=== PATIENT | male | born 1930 | race Caucasian/White ===

== ENCOUNTER 2018-04-03 15:56 | Inpatient (IN) | payer MEDICARE, BC ==
--- NOTE | 2018-04-03 16:44 | ED ---
Altered Mental Status - HPI Summary HPI Summary: 87 year old M presenting to [facility] accompanied by grandson Shakeel and later, son, with a chief complaint of altered mental status for three days. Symptoms aggravated by nothing. Symptoms alleviated by nothing. Patient reports visual hallucinations. Patient states that he sees people who are not there but while he sees them, he knows that they are not really there. He has never had these visual hallucinations before. Per triage note he has also wandered off, and driven the car a few miles. He additionally reports left-sided chest pain that waxes and wanes. He reports urgency and incontinence. Son reports shuffling gait. Patient denies headache, dizziness, fever, shortness of breath, cough. Patient denies abdominal pain, nausea, vomiting. He denies dysuria and back pain. He denies BLE pain and BLE edema. Son denies facial droop or episodes of trouble with his speech. Per grandson, patient was given melatonin 1 mg last night, fell asleep quickly, but woke up two hours after. Patient had urine sample taken at [facility] a few days ago that was reportedly negative. Patient is a . Patient was seen by urologist a couple of years ago at [facility] in [place] per grandson. 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 Vital signs while in room: HR 129/89. Home Medications Medication Instructions Recorded Confirmed Type Aspirin 325 mg PO DAILY 04/03/18 04/03/18 History - History Of Current Complaint Chief Complaint: EDAltMentalStatus Stated Complaint: AMS/WONDERS OFF Time Seen by Provider: 04/03/18 16:32 Hx Obtained From: Patient, Family/Cdl Team Truck Driver - grandtye Beckford and son and daughter Last Known Well Date: 3 days ago Onset/Duration: Still Present Timing: Constant, Lasting Days - 3 Severity Initially: Mild Severity Currently: Moderate Character: Confusion Aggravating Factor(s): Nothing Alleviating Factor(s): Nothing - Allergies/Home Medications Allergies/Adverse Reactions: Allergies Allergy/AdvReac Type Severity Reaction Status Date / Time No Known Allergies Allergy Verified 04/03/18 16:35 Home Medications: Home Medications Aspirin 325 mg PO DAILY 04/03/18 [History Confirmed 04/03/18] PMH/Surg Hx/FS Hx/Imm Hx Previously Healthy: No Cardiovascular History: Reports: Hx Atrial Fibrillation, Hx Coronary Artery Disease Denies: Hx Pacemaker/ICD History: Reports: Other Problems/Disorders - patient has one kidney - Surgical History Surgery Procedure, Year, and Place: Stents in his heart Infectious Disease History: No Infectious Disease History: Denies: Traveled Outside the [place] in Last 30 Days - Family History Known Family History: Positive: Diabetes - son, Blood Disorder - daughter with blood clots Family History: Patient's grandson states that he does not know much about patient's Fhx because patient keeps that information to himself. However, patient's grandson states knowledge of patient's daughter having blood clots, son having diabetes. - Social History Lives: With Family - with Alcohol Use: Daily Alcohol Amount: 1-3 Hx Substance Use: No Substance Use Type: Reports: None Smoking Status (MU): Never Smoked Tobacco Review of Systems Negative: Fever Positive: Chest Pain - reports left-sided chest pain that waxes and wanes Negative: Shortness Of Breath, Cough Negative: Abdominal Pain, Vomiting, Nausea Positive: incontinence, urgency. Negative: dysuria, flank pain Musculoskeletal: Negative - calf pain or swelling Negative: Edema Skin: Negative Neurological: Negative - Dizziness, facial droop, speech problem , Other - altered mental status, shuffling gait Negative: Headache Positive: Other - visual hallucinations that he is aware of All Other Systems Reviewed And Are Negative: Yes Physical Exam - Summary Physical Exam Summary: Appearance: Well-appearing, no pain distress, well-nourished Skin: Warm, color reflects adequate perfusion, dry Head: Normal Head/Face inspection, atraumatic Eyes: Conjunctiva clear ENT: Normal inspection Neck: Supple, no nodes, no JVD Respiratory: Lungs clear, normal breath sounds, no respiratory distress Cardio: RRR, No murmur, pulses normal, brisk capillary refill Abdomen: Soft, nontender Bowel sounds: Present Musculoskeletal: Strength Intact/ROM intact, no calf tenderness, no edema. Psychological: Normal Neuro: A&O x3, CN II-XII intact, motor function 5/5, sensation intact, cerebellar normal GCS: 15 Triage Information Reviewed: Yes Vital Signs On Initial Exam: Initial Vitals Temp Pulse Resp BP Pulse Ox 97.2 F 0 18 129/89 0 04/03/18 16:22 04/03/18 16:22 04/03/18 16:22 04/03/18 16:22 04/03/18 16:22 Vital Signs Reviewed: Yes - Gertrudis Coma Scale Best Eye Response: 4 - Spontaneous Best Motor Response: 6 - Obeys Commands Best Verbal Response: 5 - Oriented Coma Scale Total: 15 Diagnostics - Vital Signs Vital Signs Temp Pulse Resp BP Pulse Ox 04/03/18 16:22 97.2 F 0 18 129/89 0 - Laboratory Result Diagrams: 04/06/18 05:48 04/06/18 05:42 Lab Statement: Any lab studies that have been ordered have been reviewed, and results considered in the medical decision making process. - Radiology CXR Radiology Interpretation Completed By: ED Physician Summary of Radiographic Findings: No acute disease. Pending official report. - CT Brain CT Interpretation Completed By: Radiologist Summary of CT Findings: NO ACUTE INTRACRANIAL PATHOLOGY. DIFFUSE INVOLUTIONAL CHANGE WITH CHRONIC SMALL VESSEL ISCHEMIC CHANGES. ED physician has reviewed this report. - EKG 1629 Cardiac Rate: NL - 84 BPM EKG Rhythm: Atrial Fibrillation ST Segment: Non-Specific Ectopy: None EKG Comparison: Other - No prior to compare to Summary of EKG Findings: Nml IV CT, nml QT. No acute changes. Re-Evaluation - Re-Evaluation First Eval Re-Evaluation Time: 19:35 Change: Unchanged Comment: He is comfortable. Family are with him. Family are concerned because he keeps wandering off. Family favors admission. Second Eval Re-Evaluation Time: 20:44 Comment: Family are told that Dr. Borrego will consult on the case. He is stable. He is urinating without problem. Altered Mental Statu Course/Dx - Course Course Of Treatment: Reviewed nurses note. Patient medications reviewed this visit. Allergies noted. High blood pressure noted. CT Brain shows NO ACUTE INTRACRANIAL PATHOLOGY. DIFFUSE INVOLUTIONAL CHANGE WITH CHRONIC SMALL VESSEL ISCHEMIC CHANGES. CXR shows no acute disease, preliminary read. EKG shows atrial fibrillation, no acute changes, with no prior to compare. Labs show CKD stage (probable baseline for pt with single kidney since , followed by nephrology, no baseline at [facility] Family is concerned about patient's wandering around. They would favor admission. Spoke with Dr. Borrego, who agrees to consult on case. Spoke with Chiqui Sung NP, at 22:20 who agrees to admit patient. The patient will be admitted. - Diagnoses Differential Diagnosis/HQI/PQRI: CVA, Hypoglycemia, Hypothermia, Hypoxia, Intoxication, Intracranial Bleed, Medication Reaction, Metabolic Disorder, Sepsis, TIA Provider Diagnoses: Altered mental status, Atrial fibrillation, CKD (chronic kidney disease) stage 3, GFR 30-59 ml/min - Provider Notifications Discussed Care Of Patient With: Froylan Borrego Time Discussed With Above Provider: 20:34 Instructed by Provider To: Other - Dr. Borrego, hospitalist, agrees to consult on the case. Discharge - Sign-Out/Discharge Documenting (check all that apply): Patient Departure - admit All imaging exams completed and their final reports reviewed: No Patient Received Moderate/Deep Sedation with Procedure: No - Discharge Plan Condition: Stable Disposition: ADMITTED TO [facility] - Billing Disposition and Condition Condition: STABLE Disposition: Admitted to [facility] - Attestation Statements Document Initiated by Alfred: Yes Documenting Scribe: Amber Rudd Provider For Whom Scribe is Documenting (Include Credential): Barb Waterman MD Scribe Attestation: Amber Bryant scribed for Barb Waterman MD on 04/06/18 at 2344. Scribe Documentation Reviewed: Yes Provider Attestation: The documentation as recorded by the Amber oliveros accurately reflects the service I personally performed and the decisions made by Barb carpio MD Status of Scribe Document: Viewed
[2018-04-03 17:21] LABS: Urine Appearance Clear; Urine Bilirubin Negative (Negative); Urine Blood Negative (Negative); Urine Color Yellow; Urine Glucose Negative (Negative); Urine Ketones Negative (Negative); Urine Nitrite Negative (Negative); Urine Protein Negative (Negative); Urine Specific Gravity 1.013 (1.010-1.030); Urine Urobilinogen Negative (Negative)
[2018-04-03 17:35] LABS: Barbiturates Urine Screen None Detected (None Detect); Benzodiazepine Urine Screen None Detected (None Detect); Urine Cannabinoids Screen None Detected (None Detect)
[2018-04-03 17:51] LABS: ABS Basophils 0.1 10^3/ul (0-0.2); ABS Eosinophils 0.1 10^3/ul (0-0.6); ABS Lymphocytes 1.1 10^3/ul (1.0-4.8); ABS Monocytes 0.5 10^3/ul (0-0.8); ABS Neutrophils 5.2 10^3/ul (1.5-7.7); ABS Nucleated RBC 0 10^3/ul; Eosinophil % 1.7 %; Hematocrit 41 % (42-52); Hemoglobin 13.4 g/dl (14.0-18.0); Lymphocyte % 15.9 %; Mean Corpuscular HGB Conc 33 g/dl (31-36); Mean Corpuscular Hemoglobin 30 pg (27-31); Mean Corpuscular Volume 92 fL (80-94); Mean Platelet Volume 7.5 fL (7.4-10.4); Nucleated Red Blood Cells % 0; Platelet Count 190 10^3/ul (150-450); Red Blood Count 4.46 10^6/ul (4.00-5.40); Red Cell Distribution Width 15 % (10.5-15); White Blood Count 7.1 10^3/ul (3.5-10.8)
[2018-04-03 18:02] LABS: ALT 12 U/L (7-52); AST 19 U/L (13-39); Albumin 4.3 g/dL (3.2-5.2); Albumin/Globulin Ratio 1.6 (1-3); Alkaline Phosphatase 72 U/L (34-104); Anion Gap 7 mmol/L (2-11); BUN/Creatinine Ratio 24.6 (8-20); Blood Urea Nitrogen 34 mg/dL (6-24); CO2 Carbon Dioxide 25 mmol/L (22-32); Calcium 9.5 mg/dL (8.6-10.3); Chloride 107 mmol/L (101-111); Creatine Kinase 65 U/L (10-223); EGFR African American 59.1 (>60); EGFR Non-African American 48.9 (>60); Globulin 2.7 g/dL (2-4); Glucose 91 mg/dL (70-100); Magnesium 2.2 mg/dL (1.9-2.7); Potassium 4.5 mmol/L (3.5-5.0); Sodium 139 mmol/L (135-145)
[2018-04-03 18:04] LABS: INR 1.04 (0.77-1.02); Troponin I 0.03 ng/mL (<0.04)
[2018-04-03 18:10] LABS: Acetaminophen < 15 mcg/mL; Alcohol < 10 mg/dL (<10); Salicylate < 2.50 mg/dL (<30)
[2018-04-03 18:25] LABS: TSH (Thyroid Stimulating Horm) 1.23 mcIU/mL (0.34-5.60)
[2018-04-03] MEDS ORDERED: hydrALAZINE IV* 20 MG/ML VIAL IV SLOW PU PRN (22:28)
[2018-04-03] MEDS ORDERED: Acetaminophen TAB* 325 MG PO PRN (22:41)
[2018-04-03 22:46] LABS: BNP 355 pg/mL (<=100)
[2018-04-03] MEDS ORDERED: LORazepam TAB(*) 1 MG PO SCH (23:00)
--- NOTE | 2018-04-04 03:38 | HP ---
CC: Dr. Gabriel Saravia * HISTORY AND PHYSICAL: DATE OF ADMISSION: 04/03/18 PRIMARY CARE PROVIDER: Dr. Gabriel Saravia ATTENDING PHYSICIAN: Dr. Julius Hollis * (dictated by Liang Sung NP). CHIEF COMPLAINT: Altered mental status. HISTORY OF PRESENT ILLNESS: Mr. Vargas is an 87-year-old male with past medical history significant for atrial fibrillation, coronary artery disease and solitary kidney, who according to his family developed altered mental status approximately 3 days ago. At that time, he developed visual hallucinations where he has seen "tiny people" that are not there. This is new and has not happened before. He is aware that this is happening. He was found walking approximately 8/10th of a mile away from his home in the last day (this was approximatley 7:30 pm) and additionally, he was found driving his vehicle twice today, one of the time included him leaving the house and saying that he drove to get away from the "little people". His grandson gave him 1 mg of melatonin last night and he fell asleep but woke up after 2 hours. His family reports that he was newly diagnosed with atrial fibrillation this summer, but was only placed on a full dose aspirin and not fully anticoagulated. He follows yearly with a vending machine technician, as he only a solitary kidney. His family is unsure if it was surgically removed due to an accident or if he was born that way. They believes his next appointment is in April with the vending machine technician. His family reports last year that he stopped taking all of his medications, they believe that was just atorvastatin or simvastatin. He lives with his . Denies any fevers or chills. He reports intermittent left lateral chest discomfort, but he has not had any recently. He states that the chest pain has been intermittent for 4 to 5 years. 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 He denies shortness of breath, abdominal pain, urinary symptoms, dizziness, lightheadedness, blurry vision, or double vision. His family denied any facial drooping or difficulty with speech that they have noticed. Due to concern, they brought him to the emergency room for further evaluation of his symptoms. While in the emergency room, he had labs showing CKD stage 3, there are no previous baseline labs to see what his kidney function is at baseline. His troponin was 0.03, again there is no previous labs for comparison. CBC was unremarkable and urinalysis was negative. His toxicology was negative. He had a brain CT that showed no acute pathology, diffuse involutional change. He had a chest x-ray showing no acute findings. He had an EKG showing atrial fibrillation. Due to his presentation, the hospitalists were asked to evaluate for possible admission. He has resting tremor. PAST MEDICAL HISTORY: 1. Coronary artery disease. 2. Atrial fibrillation. 3. Solitary kidney. PAST SURGICAL HISTORY: Status post cardiac stenting. MEDICATIONS: Home medications: 1. Aspirin 325 mg oral daily. 2. Vitamin B12 intramuscularly once monthly. 3. Ocuvite 1 tablet oral daily. ALLERGIES: No known drug allergies. FAMILY HISTORY: His sister possibly had coronary artery disease. Additionally , another sister who possibly had a stroke. Son with diabetes and no known family history of cancer. SOCIAL HISTORY: He is a former smoker, he quit smoking in the mid 1960s, prior to that, he was a half a pack a day smoker for a few years and then after a while he chew tobacco for a while. He drinks 2 to 6 beers daily. He denies recreational drug use. His son Leonel Vargas will be his surrogate decision maker in the event he is unable to make decisions for himself. REVIEW OF SYSTEMS: I performed an 11-point review of systems. All the pertinent positives and negatives are mentioned in the history of present illness. The remaining review of symptoms are negative. PHYSICAL EXAMINATION GENERAL APPEARANCE: The patient is alert, pleasant, appears to be in no acute distress. VITAL SIGNS: Temperature 97.2, blood pressure 156/101, heart rate 98, respiratory rate 19, O2 sat 95% on room air. HEENT: Normocephalic, atraumatic. Pupils are equal, reactive to light. Extraocular movements are intact. RESPIRATORY: There is no accessory muscle use. The lungs are clear to auscultation bilateral. CARDIOVASCULAR: Regular rate and rhythm. S1, S2 present. There are no murmurs , rubs, or gallops heard. ABDOMEN: Soft, nontender, nondistended. There are bowel sounds present x4. EXTREMITIES: There is no lower extremity edema. DP and PT pulses are 1+ and symmetric. MUSCULOSKELETAL: There is no clubbing or cyanosis noted. The patient exhibits good strength in all extremities. NEUROLOGICAL: The patient is alert and oriented to person and place. Cranial nerves II through XII are grossly intact. His smile is symmetric. His tongue is midline. His hand fence setter are equal. He has equal dorsi and plantar flexion on his legs bilaterally. He is perform heel from ankle to knee bilateral without difficulty. He is able to perform finger to nose bilaterally without difficulty. Initially, he did have some difficulty with the left side but this resolved on repeat try. With his resting state, he is noted to have a slightly deeper crease from his mouth towards his chin on the left side and it is slightly flatter on the right side. PSYCHOLOGICAL: Calm and cooperative. SKIN: There are no rashes or abnormalities seen. DIAGNOSTIC STUDIES/LABORATORY DATA: Sodium 139, potassium 4.5, chloride 107, CO2 of 25, BUN 34, creatinine 1.38, glucose 91. White blood cell count 7.1, hemoglobin 13.4, hematocrit 41, platelet count 190, troponin 0.03, urinalysis is negative. EKG shows atrial fibrillation with rate of 84, there is no previous EKGs for comparison. Chest x-ray from today, my interpretation is no active cardiopulmonary disease. Head CT from today, radiologist impression, no active intracranial pathology, diffuse involutional change with chronic small vessel ischemic changes. IMPRESSION: Mr. Vargas is an 87-year-old male with past medical history significant for atrial fibrillation, solitary kidney, and coronary artery disease who presented to the hospital with altered mental status for at least 3 days. He will be admitted as an observation for altered mental status rule out cerebrovascular accident and transient ischemic attack. ASSESSMENT AND PLAN: 1. Altered Mental Status. The patient is more confused per his family and having visual hallucinations that he is aware of. We are going to rule out cerebrovascular accident and transient ischemic attack as he does have a history of atrial fibrillation, and he is only on a full dose aspirin and is not fully anticoagulated. It is unclear if he has had an echocardiogram, so we will get an echocardiogram with a bubble study. We will monitor him on telemetry. Additionally, we will get an MRI in the morning. His initial CT of his brain is negative. He will have neuro check q.4 hours. We will check fasting lipids in the morning. We are going to hold off on putting him on a statin, as he took himself off statins approximately a year ago. He has been slightly hypertensive to normotensive in the emergency room. We will not starting him on antihypertensives tonight to allow for permissive hypertension while we rule out a cerebrovascular accident, but I will order hydralazine as needed for systolic blood pressures greater than 185 and diastolic blood pressure greater than 100. He may need to be started on antihypertensives if he continues to be hypertensive. 2. Coronary artery disease. He reports having intermittent left sided chest discomfort for 4 to 5 years. He is not currently complaining of chest pain. He is on a full dose aspirin. He is not on a beta-aubree or a statin. 3. Elevated creatinine. I suspect he has CKD at baseline. Family says that his GFR is closely monitored by his vending machine technician. I suspect he is probably at his baseline, but I would like to get records from his PCP to verify. 4. Alcohol use. Patient drinks 2 to 6 beers daily. We are going to put him on a WAM protocol. 5. Atrial Fibrillation. Rate is controlled. He is not currently fully anticoagulated. Continue Aspirin. 6. Hypertension. As per above he has been hypertensive in the ED, will hold off on starting medications and allow for permissive hypertension overnight. 7. Fluids, electrolytes and nutrition. He will be on a heart healthy diet. 8. Code status. Full code. 9. DVT prophylaxis. He is at high risk and we will place him on subcu heparin. 10. Disposition. Observation. TIME SPENT: Time for this admission was approximately 60 minutes, greater than half of that was spent with the patient and family discussing medications, past medical history, the events leading up to his arrival today, performing a physical examination. The case has been reviewed with the attending, Dr. Borrego, who agrees with the plan of care. Reviewed by LIANG SUNG, CHELSY-Chandan 04/14/18 2054 [id number]/[facility] #: [id number] [place]
[2018-04-04] MEDS: Heparin VIAL(*) 5000 UNITS/ML VIAL (FIVE THOUSAND) SUBCUT SCH ×2 (06:26→14:13)
[2018-04-04 07:11] LABS: Cholesterol 151 mg/dL; HDL Cholesterol 66.8 mg/dL; LDL Cholesterol 72 mg/dL; Triglycerides 63 mg/dL
[2018-04-04] MEDS: Haloperidol INJ IV/IM* 5 MG/ML AMP IV SLOW PU PRN ×2 (07:45→23:15)
[2018-04-04] MEDS: LORazepam INJ* 2 MG/ML 1 ML VIAL IM SCH ×2 (08:00→23:51)
[2018-04-04] MEDS: Aspirin EC TAB* 325 MG PO SCH ×2 (08:27→08:28)
[2018-04-04] MEDS: Thiamine TAB* 100 MG TAB PO SCH ×2 (08:27→08:29)
[2018-04-04] MEDS: Multivitamins/Minerals TAB PO SCH ×2 (08:27→08:29)
[2018-04-04] MEDS: Folic Acid TAB* 1 MG PO SCH ×2 (08:27→08:29)
[2018-04-04] MEDS ORDERED: OLANzapine TAB*ODT* 10 MG TAB PRN (14:55)
--- NOTE | 2018-04-04 15:05 | PN ---
Subjective Date of Service: 04/04/18 Interval History: Pt seen and examined. Pt reported to be agitated and hits staff. Given Haldol and Ativan. Meds and labs reviewed. CC: N/A ROS: Unable to perform reliable 14 point ROS given pt recently given Haldol and BZDs due to agitation and for hitting nursing staff PHYSICAL EXAM: GEN APPEARANCE: Asleep, localizes with eyes closed, still sedated at time of visit, not in acute distress HEENT: NC/AT, PERRLA, moist oral mucosa NECK: Soft, supple, (-) cervical LAD, (-)JVD HEART: S1S2 WNL, RRR, No MRG CHEST: CTA, BL, GAE, No W/R/R ABD: Soft, ND/NT, NABS 4x Q EXT: No C/C/E SKIN: Warm to touch PSYCH: No active psychosis, hallucinations, depression, SI/HI Objective Active Medications: Acetaminophen (Tylenol Tab*) 650 mg PO Q4H PRN PRN Reason: PAIN Aspirin (Aspirin 81 Mg Chew Tab*) 81 mg PO DAILY [facility] Folic Acid (Folvite Tab*) 1 mg PO DAILY [facility] Last Admin: 04/04/18 08:29 Dose: Not Given Haloperidol Lactate (Haldol Inj Iv/Im*) 2 mg IV SLOW PU Q6H PRN PRN Reason: AGITATION Last Admin: 04/04/18 07:45 Dose: 2 mg Heparin Sodium (Porcine) (Heparin Vial(*)) 5,000 units SUBCUT Q12H [facility] Hydralazine HCl (Apresoline Iv*) 5 mg IV SLOW PU Q6H PRN PRN Reason: BLOOD PRESSURE Lorazepam (Ativan Inj*) 0 - 6 mg IM .PER [facility] PROTOCOL [facility]; Protocol Last Admin: 04/04/18 08:00 Dose: 3 mg Multivitamins/Minerals (Theragran/Minerals Tab*) 1 tab PO DAILY [facility] Last Admin: 04/04/18 08:29 Dose: Not Given Olanzapine (Zyprexa *Odt*) 10 mg .SEE ORDER Q6H PRN PRN Reason: Agitation/Combativeness Thiamine HCl (Vitamin B-1 Tab*) 100 mg PO DAILY [facility] Last Admin: 04/04/18 08:29 Dose: Not Given Trazodone HCl (Desyrel Tab*) 25 mg PO BEDTIME [facility] Vital Signs - 8 hr 04/04/18 04/04/18 04/04/18 07:31 08:00 10:03 Temperature 97.2 F 96.4 F Pulse Rate 78 86 Respiratory 18 14 16 Rate Blood Pressure 152/67 119/65 (mmHg) O2 Sat by Pulse 100 96 Oximetry Oxygen Devices in Use Now: None Result Diagrams: 04/03/18 17:38 04/03/18 17:37 Assess/Plan/Problems-Billing Assessment: - Patient Problems (1) Change in mental status Current Visit: Yes Status: Acute Code(s): R41.82 - ALTERED MENTAL STATUS, UNSPECIFIED SNOMED Code(s): 575995117 Comment: -Unclear if pt has baseline dementia -CXR, Head CT, and Brain MRI: NAD -TSH WNL -Possible dementia w/ETOH withdrawal may be causing mental status change? -Unable to perform MMSE given pt sedated but was noted to be agitated earlier -Check B12 and MMA levels -Continue watchful waiting -Will place pt on Trazodone qHS and PRN Zyprexa zydis (2) ETOH abuse Current Visit: Yes Status: Acute Code(s): F10.10 - ALCOHOL ABUSE, UNCOMPLICATED SNOMED Code(s): 98838033 Comment: -Continue [facility] protocol -Drinks 2-6 beers/day -Unclear whether truly withdrawing or if w/dementia w/behavioral issue exacerbation or both -Continue watchful waiting (3) Creatinine elevation Current Visit: Yes Status: Acute Code(s): R79.89 - OTHER SPECIFIED ABNORMAL FINDINGS OF BLOOD CHEMISTRY SNOMED Code(s): 032081057 Comment: -Unclear baseline -Recheck in AM and continue watchful waiting (4) CAD (coronary artery disease) Current Visit: Yes Status: Acute Code(s): I25.10 - ATHSCL HEART DISEASE OF [place] CORONARY ARTERY W/O ANG PCTRS SNOMED Code(s): 84097488 Comment: -Continue ASA -BP in low 100s and likely reason why not beta aubree in the setting of advancing age? (5) DVT prophylaxis Current Visit: Yes Status: Acute Code(s): OWW1215 - SNOMED Code(s): 875529360 Comment: -Will change Heparin to SQq12H Status and Disposition: -As above -For PT eval in AM
[2018-04-04] MEDS ORDERED: traZODone TAB* 50 MG TAB PO PRN (19:47)
[2018-04-04] MEDS ORDERED: traZODone TAB* 50 MG TAB PO SCH (21:00)
[2018-04-05] MEDS ORDERED: Haloperidol INJ IV/IM* 5 MG/ML AMP IV SLOW PU PRN (00:24)
[2018-04-05 07:42] LABS: ABS Basophils 0.1 10^3/ul (0-0.2); ABS Eosinophils 0.2 10^3/ul (0-0.6); ABS Lymphocytes 1.6 10^3/ul (1.0-4.8); ABS Monocytes 0.5 10^3/ul (0-0.8); ABS Neutrophils 3.7 10^3/ul (1.5-7.7); ABS Nucleated RBC 0 10^3/ul; Eosinophil % 3.9 %; Hematocrit 39 % (42-52); Hemoglobin 12.6 g/dl (14.0-18.0); Lymphocyte % 26.2 %; Mean Corpuscular HGB Conc 33 g/dl (31-36); Mean Corpuscular Hemoglobin 30 pg (27-31); Mean Corpuscular Volume 92 fL (80-94); Mean Platelet Volume 7.8 fL (7.4-10.4); Nucleated Red Blood Cells % 0.1; Platelet Count 185 10^3/ul (150-450); Red Cell Distribution Width 15 % (10.5-15); White Blood Count 6.1 10^3/ul (3.5-10.8)
[2018-04-05 07:52] LABS: Albumin 3.5 g/dL (3.2-5.2); Albumin/Globulin Ratio 1.3 (1-3); BUN/Creatinine Ratio 25.6 (8-20); Calcium 9.3 mg/dL (8.6-10.3); EGFR African American 68.8 (>60); EGFR Non-African American 56.9 (>60); Globulin 2.6 g/dL (2-4); Magnesium 2.1 mg/dL (1.9-2.7); Phosphorus 3.6 mg/dL (2.5-5.0); Potassium 3.8 mmol/L (3.5-5.0); Total Bilirubin 0.6 mg/dL (0.2-1.0); Total Protein 6.1 g/dL (6.4-8.9)
[2018-04-05] MEDS: Aspirin 81 mg CHEW TAB* 81 MG TAB.CHEW PO SCH (09:01)
[2018-04-05] MEDS: Folic Acid TAB* 1 MG PO SCH (09:01)
[2018-04-05] MEDS: Multivitamins/Minerals TAB PO SCH (09:02)
[2018-04-05] MEDS: Thiamine TAB* 100 MG TAB PO SCH (09:02)
[2018-04-05] MEDS: Heparin VIAL(*) 5000 UNITS/ML VIAL (FIVE THOUSAND) SUBCUT SCH ×2 (09:29→22:08)
--- NOTE | 2018-04-05 09:57 | PN ---
Subjective Date of Service: 04/05/18 Interval History: Daughter at bedside and explained events leading up to admission. She reports symptoms started evening around 1900 with patient seeing "little people " and having paranoid thoughts about these people. Wednesday during the day he was less agitated and not taking about these hallucination, but was observed being very cautious and looking around the room for said people. Wednesday he became agitated again, seeing these little people, and leaving the house in search of help. Wednesday he spent most of the day at home with family. Wednesday morning around 0900 neighbors (who are also family members) called the daughter stating he had driven to their property looking for help from the little people. It should be noted that patient went to PCP on Wednesday and a urinalysis was completed and was negative therefore sent home. In addition, daughter reports patient only drinks 2 to 3 [place] lights in a 12 hour period. Patient is not able to engage in conversation or ROS as he is lethargic this morning. I suspected this is due to receiving Haldol last evening due to agitation. Objective Active Medications: Acetaminophen (Tylenol Tab*) 650 mg PO Q4H PRN PRN Reason: PAIN Aspirin (Aspirin 81 Mg Chew Tab*) 81 mg PO DAILY [facility] Last Admin: 04/05/18 09:01 Dose: Not Given Folic Acid (Folvite Tab*) 1 mg PO DAILY [facility] Last Admin: 04/05/18 09:01 Dose: Not Given Haloperidol Lactate (Haldol Inj Iv/Im*) 4 mg IV SLOW PU Q6H PRN PRN Reason: AGITATION Heparin Sodium (Porcine) (Heparin Vial(*)) 5,000 units SUBCUT BID [facility] Last Admin: 04/05/18 09:29 Dose: 5,000 units Hydralazine HCl (Apresoline Iv*) 5 mg IV SLOW PU Q6H PRN PRN Reason: BLOOD PRESSURE Lorazepam (Ativan Inj*) 0 - 6 mg IM .PER [facility] PROTOCOL [facility]; Protocol Last Admin: 04/04/18 23:51 Dose: 5 mg Multivitamins/Minerals (Theragran/Minerals Tab*) 1 tab PO DAILY [facility] Last Admin: 04/05/18 09:02 Dose: Not Given Olanzapine (Zyprexa *Odt*) 10 mg .SEE ORDER Q6H PRN PRN Reason: Agitation/Combativeness Thiamine HCl (Vitamin B-1 Tab*) 100 mg PO DAILY [facility] Last Admin: 04/05/18 09:02 Dose: Not Given Trazodone HCl (Desyrel Tab*) 25 mg PO BEDTIME PRN PRN Reason: INSOMNIA Vital Signs - 8 hr 04/05/18 04/05/18 04/05/18 01:52 04:01 06:21 Temperature 97.6 F 97.7 F 96.9 F Pulse Rate 85 93 83 Respiratory 16 16 16 Rate Blood Pressure 119/65 123/71 124/71 (mmHg) O2 Sat by Pulse 97 98 98 Oximetry Oxygen Devices in Use Now: None Appearance: Comfortable, lethargic, NAD Eyes: No Scleral Icterus Ears/Nose/Mouth/Throat: Clear Oropharnyx, Mucous Membranes Moist Neck: NL Appearance and Movements; NL JVP Respiratory: Symmetrical Chest Expansion and Respiratory Effort, Clear to Auscultation Cardiovascular: NL Sounds; No Murmurs; No JVD, RRR, No Edema Abdominal: NL Sounds; No Tenderness; No Distention Lymphatic: No Cervical Adenopathy Extremities: No Edema Skin: No Rash or Ulcers Neurological: NL Muscle Strength and Tone, - - Lethargic, but responds to voice. Pulls away equally from assessment. Result Diagrams: 04/05/18 07:03 04/05/18 07:03 Additional Lab and Data: Laboratory Results - last 24 hr 04/04/18 04/05/18 04/05/18 06:42 07:03 07:03 WBC 6.1 RBC 4.20 Hgb 12.6 L Hct 39 L MCV 92 MCH 30 MCHC 33 RDW 15 Plt Count 185 MPV 7.8 Neut % (Auto) 61.0 Lymph % (Auto) 26.2 [place] % (Auto) 8.0 Eos % (Auto) 3.9 Baso % (Auto) 0.9 Absolute Neuts (auto) 3.7 Absolute Lymphs (auto) 1.6 Absolute Monos (auto) 0.5 Absolute Eos (auto) 0.2 Absolute Basos (auto) 0.1 Absolute Nucleated RBC 0 Nucleated RBC % 0.1 Sodium 141 Potassium 3.8 Chloride 109 Carbon Dioxide 25 Anion Gap 7 BUN 31 H Creatinine 1.21 H Est GFR ( Amer) 68.8 Est GFR (Non-Af Amer) 56.9 BUN/Creatinine Ratio 25.6 H Glucose 101 H Calcium 9.3 Phosphorus 3.6 Magnesium 2.1 Total Bilirubin 0.60 AST 20 ALT 10 Alkaline Phosphatase 63 Total Protein 6.1 L Albumin 3.5 Globulin 2.6 Albumin/Globulin Ratio 1.3 Triglycerides 63 Cholesterol 151 LDL Cholesterol 72 HDL Cholesterol 66.8 Vitamin B12 > 1450 H Diagnostic Imaging: COMPARISONS: Head CT dated April 03, 2018 TECHNIQUE: The following sequences were obtained of the head: Sagittal T1- weighted images, axial T2-weighted images, axial FLAIR images, axial susceptibility weighted images, axial T1-weighted images. Additionally, axial diffusion-weighted images were obtained with calculated apparent diffusion coefficients. FINDINGS: The study is limited by patient motion artifact. HEMORRHAGE/INFARCT: There is no hemorrhage or acute infarct. MASSES/SHIFT: There is no mass or shift. EXTRA-AXIAL SPACES/MENINGES: There are no extra-axial fluid collections. SULCI AND VENTRICLES: There is diffuse and proportional enlargement of the sulci and ventricles. CEREBRUM: There are multiple scattered small foci of elevated T2/FLAIR signal within the periventricular and subcortical white matter. BRAINSTEM: There is elevated T2/FLAIR signal centrally within the yobany. CEREBELLUM: There are no focal parenchymal abnormalities. The cerebellar tonsils are normal in size and position. SELLA: The sella is normal. PINEAL: The pineal region is clear. CP ANGLE/TEMPORAL BONES: The labyrinthine structures are grossly normal. VESSELS: Normal flow-voids are noted within the visualized vertebral vasculature. DIFFUSION ABNORMALITIES: There are no diffusion abnormalities. PARANASAL SINUSES/MASTOIDS: The paranasal sinuses are clear. ORBITS: The orbits are unremarkable. BONES AND SOFT TISSUE: No bone or soft tissue abnormalities are noted. OTHER: None IMPRESSION: 1. DIFFUSE INVOLUTIONAL CHANGE 2. THERE ARE MULTIPLE FOCI OF ELEVATED T2/FLAIR SIGNAL IN THE PERIVENTRICULAR, SUBCORTICAL, AND PONTINE WHITE MATTER. WHILE NONSPECIFIC, THE APPEARANCE IS SUGGESTIVE OF CHRONIC SMALL VESSEL ISCHEMIC CHANGE. 3. THERE IS NO RESTRICTED DIFFUSION TO SUGGEST ACUTE INFARCT, THOUGH EVALUATION IS LIMITED BY PATIENT MOTION ARTIFACT. HISTORY: altered mental status COMPARISONS: None TECHNIQUE: Multiple contiguous axial CT scans were obtained of the head without intravenous contrast. FINDINGS: HEMORRHAGE/INFARCT: There is no hemorrhage or acute infarct. MASSES/SHIFT: There is no mass or shift. EXTRA-AXIAL SPACES: There are no extra-axial fluid collections. SULCI AND VENTRICLES: There is diffuse and proportional enlargement of the sulci and ventricles. CEREBRUM: There is hypoattenuation of the periventricular and subcortical white matter. BRAINSTEM: There are no focal parenchymal abnormalities. CEREBELLUM: There are no focal parenchymal abnormalities. VESSELS: The vessels are grossly normal. PARANASAL SINUSES: The paranasal sinuses are clear. ORBITS: The orbits are unremarkable. BONES AND SOFT TISSUE: No bone or soft tissue abnormalities are noted. OTHER: None IMPRESSION: NO ACUTE INTRACRANIAL PATHOLOGY. DIFFUSE INVOLUTIONAL CHANGE WITH CHRONIC SMALL VESSEL ISCHEMIC CHANGES. 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 - Patient Problems (1) Change in mental status Comment: - Etiology unclear - CXR: No active cardiopulmonary disease. - Head CT and Brain MRI as above - TSH WNL - Requested Neurology consult - B12 > than normal limits. MMA pending - Very lethargic today, therefore, stopped Trazadone and Zyprexa. Haldol only as needed - Continue watchful waiting (2) CAD (coronary artery disease) Comment: - Continue ASA - Normotensive - No home medications - Hydralazine prn (3) Creatinine elevation Comment: - Elevated on admission; mildly improved today; no baseline - IV fluids ordereddue to elevated creatinine and lethargy (not taking PO) - Recheck in AM (4) ETOH abuse Comment: - Continue [facility] protocol - Daughter reports 1 to 2 [place] Lights in 12 hr period - Unclear whether truly withdrawing - Monitor (5) DVT prophylaxis Comment: -Will change Heparin to [id number] Status and Disposition: -As above -For PT eval in AM Attending: Yeison Salcedo
[2018-04-05] MEDS: NS 0.9% 1000 ML** 1,000 ML IV SCH (12:54)
[2018-04-05] MEDS: Thiamine IV* 250 MG in NS 0.9% 100 ML* 100 ML IV SCH (18:10)
--- NOTE | 2018-04-05 19:11 | CONS ---
NEUROLOGY CONSULTATION: DATE OF CONSULT: 04/05/18 LOCATION: He is in an inpatient, room 405. REFERRING PROVIDER: Sandra Duran NP CHIEF COMPLAINT: Hallucinations, confusion. HISTORY OF PRESENT ILLNESS: Onesimo Vargas is an 87-year-old man who was brought into the hospital by his family yesterday with agitation and hallucinations. His daughter and son-in-law are present. He has had problems with memory such that they had him stop driving about 6 months or more ago. However, most of the time, he is pretty functional. Over the last 2 weeks, he started to decline. He in the last week reported seeing "little people." He exhibited some paranoid behavior. He went driving on his own when he is not supposed to drive anymore twice this past week. He was picking at things and apparently hallucinating and ultimately was brought into the emergency room. His daughter said that he was agitated and police was summoned, but he came in peacefully. She indicated that he said that he knew something was wrong and that he needed to be evaluated. During the hospitalization, he did get agitated and required some Haldol. He was quite somnolent after that. He continues to pick at things and has episodes where he seems perhaps unresponsive or at least mentally distracted. They can last as long as a minute. He has no history of stroke or seizures. There is no history of head trauma, but he does fall and has done so repeatedly for about 2 years. He drinks about 3 beers per day according to his daughter, 2 to 6 according to intake notes. As part of his evaluation, he had an MRI scan of the brain and a CAT scan of the brain. I reviewed both sets of images. It shows a fair amount of atrophy as well as subcortical chronic ischemic changes. There is no evidence of infarctions or recent or remote hemorrhages. Other laboratory data since admission includes a normal urinalysis, negative toxicology screen, undetectable serum alcohol level, elevated creatinine consistent with his history of chronic kidney disease, otherwise unremarkable chemistry profile. Vitamin B12 level on admission was greater than 1450 and TSH 1.23. PAST MEDICAL HISTORY: Notable for a single kidney. He has a history of hyperlipidemia and was on a statin and antihypertensives, but apparently stopped them about a year or more ago. He has a history of intermittent atrial fibrillation, treated with aspirin only. MEDICATIONS: At home consist of: 1. Aspirin 325 mg q. day. 2. Vitamin B12 injections monthly. 3. Ocuvite eye drops. REVIEW OF SYSTEMS: From the patient is nonproductive. He denies headache. His daughter said that he has been gradually losing weight for probably a year or more. He is unsteady on his feet and falls. He quit smoking in the 1960s. No history of lung disease otherwise. According to his daughter, he drinks 3 beers per day. There is no history of head trauma or loss of consciousness known. There is no history of epilepsy or stroke. There is no history of diabetes. He does have a history of cardiac stenting. PHYSICAL EXAM: He is a thin, elderly gentleman, picking at his bed clothes. Vital Signs: Temperature 97.2, blood pressure 165/103 most recently, heart rate in the 80s and seems regular. Respiratory rate 21 and oxygen saturation is 98% on room air. Heart is in a regular rhythm and I do not hear murmurs. There are no cervical bruits. Head is atraumatic. Lungs are clear. Neurological Exam: Pupils react equally from about 2.5 to 2 mm. Eye movements are full. It is hard to get him to sustain attention. Funduscopic exam reveals a sharp optic disc on the right, but I cannot see the left one because of vitreous opacities. Facial musculature is symmetric with blepharospasm. Speech is mumbly, but intermittently clear. He does phonate and raises his palate symmetrically. Motor exam reveals diffuse rigidity. There is no asymmetry. He has restless movements of his limbs. 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 Reflexes are trace at the knees and absent otherwise. Plantar responses are flexor. I did not attempt to ambulate him. He is awake, but tends to keep his eyes closed. He has lapses, where he will just sit and not say anything, but when I call him name, he opens his eyes in response. He picks at things and reaches out to imaginary things in the air. He is not able to provide a meaningful history. DIAGNOSTIC STUDIES/LAB DATA: As noted in the history of present illness. IMPRESSION AND PLAN: Impression is that of possible delirium superimposed on probable dementia. He has quite a bit of atrophy and vascular disease on his MRI scan. Today, there is no clear explanation for his subacute decline. I have ordered an EEG to make sure he is not having complex partial seizures. We will check some additional lab studies to include an PAIGE, CRP, and syphilis IgG. I would recommend parenteral thiamine given his history of alcohol intake and weight loss. He had been written for p.o. thiamine, but he has not received it in the last 2 days. Methylmalonic acid is pending, but his B12 level is greater than 1000, so that is not likely to be the etiology. I will continue to follow him along with you. [id number]/[facility] #: [id number] [place]
[2018-04-06] MEDS: LORazepam INJ* 2 MG/ML 1 ML VIAL IM SCH (02:12)
[2018-04-06] MEDS: NS 0.9% 1000 ML** 1,000 ML IV SCH ×2 (04:17→17:51)
[2018-04-06 06:20] LABS: ABS Basophils 0 10^3/ul (0-0.2); ABS Eosinophils 0.2 10^3/ul (0-0.6); ABS Lymphocytes 1.3 10^3/ul (1.0-4.8); ABS Monocytes 0.6 10^3/ul (0-0.8); ABS Neutrophils 4.9 10^3/ul (1.5-7.7); ABS Nucleated RBC 0 10^3/ul; Eosinophil % 2.3 %; Hematocrit 38 % (42-52); Hemoglobin 12.6 g/dl (14.0-18.0); Lymphocyte % 18.9 %; Mean Corpuscular HGB Conc 33 g/dl (31-36); Mean Corpuscular Hemoglobin 30 pg (27-31); Mean Corpuscular Volume 92 fL (80-94); Mean Platelet Volume 7.5 fL (7.4-10.4); Nucleated Red Blood Cells % 0.1; Platelet Count 163 10^3/ul (150-450); Red Blood Count 4.17 10^6/ul (4.00-5.40); Red Cell Distribution Width 15 % (10.5-15)
[2018-04-06 06:37] LABS: BUN/Creatinine Ratio 25.7 (8-20); C Reactive Protein 9.74 mg/L (<8.01); Calcium 9.1 mg/dL (8.6-10.3); EGFR African American 74.5 (>60); EGFR Non-African American 61.5 (>60)
[2018-04-06] MEDS: Heparin VIAL(*) 5000 UNITS/ML VIAL (FIVE THOUSAND) SUBCUT SCH ×2 (08:40→21:07)
[2018-04-06] MEDS: Aspirin 81 mg CHEW TAB* 81 MG TAB.CHEW PO SCH (09:23)
[2018-04-06] MEDS: Multivitamins/Minerals TAB PO SCH (09:24)
[2018-04-06] MEDS: Folic Acid TAB* 1 MG PO SCH (09:24)
[2018-04-06] MEDS ORDERED: LORazepam TAB(*) 1 MG PO SCH (10:00)
--- NOTE | 2018-04-06 15:17 | PN ---
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 Resting in bed with son at bedside. Patient will alert to voice, but is drowsy. When discussed possible diagnosis of delirium and dementia, son states that he believes he has noted small changes in his dad, but did not put it all together until recently. He also reports that he has been focused on the fact that the patient has not been wearing his glasses and hearing aids. We discussed importance of these devices as they can help reorient patient. Glasses were placed on patient and family will bring hearing aids. Patient denies pain, but not engaging in remainder of ROS Objective Active Medications: Acetaminophen (Tylenol Tab*) 650 mg PO Q4H PRN PRN Reason: PAIN Aspirin (Aspirin 81 Mg Chew Tab*) 81 mg PO DAILY [facility] Last Admin: 04/06/18 09:23 Dose: Not Given Folic Acid (Folvite Tab*) 1 mg PO DAILY [facility] Last Admin: 04/06/18 09:24 Dose: Not Given Heparin Sodium (Porcine) (Heparin Vial(*)) 5,000 units SUBCUT BID [facility] Last Admin: 04/06/18 08:40 Dose: 5,000 units Hydralazine HCl (Apresoline Iv*) 5 mg IV SLOW PU Q6H PRN PRN Reason: BLOOD PRESSURE Sodium Chloride (Ns 0.9% 1000 Ml) 1,000 mls @ 75 mls/hr IV PER RATE [facility] Last Admin: 04/06/18 04:17 Dose: 75 mls/hr Thiamine HCl 250 mg/ Sodium (Chloride) 102.5 mls @ 205 mls/hr IV Q24H [facility] Last Admin: 04/05/18 18:10 Dose: 205 mls/hr Lorazepam (Ativan Tab(*)) 0 - 6 mg PO .PER [facility] PROTOCOL [facility]; Protocol Multivitamins/Minerals (Theragran/Minerals Tab*) 1 tab PO DAILY [facility] Last Admin: 04/06/18 09:24 Dose: Not Given Vital Signs - 8 hr 04/06/18 04/06/18 07:47 08:00 Temperature 97.8 F Pulse Rate 79 Respiratory 16 16 Rate Blood Pressure 156/73 (mmHg) O2 Sat by Pulse 98 Oximetry Oxygen Devices in Use Now: None Appearance: NAD, Lethargic Eyes: No Scleral Icterus Ears/Nose/Mouth/Throat: Clear Oropharnyx, Mucous Membranes Moist Neck: NL Appearance and Movements; NL JVP Respiratory: Symmetrical Chest Expansion and Respiratory Effort, Clear to Auscultation Cardiovascular: NL Sounds; No Murmurs; No JVD, No Edema, - - Irr (hx of afib) Abdominal: NL Sounds; No Tenderness; No Distention Lymphatic: No Cervical Adenopathy Extremities: No Clubbing, Cyanosis Skin: No Rash or Ulcers Neurological: NL Muscle Strength and Tone, - - Alert. Orientation unclear due to patient's inability to engage in questions Nutrition: - - NPO until Swallow Evaluation completed Result Diagrams: 04/06/18 05:48 04/06/18 05:42 Additional Lab and Data: Laboratory Results - last 24 hr 04/06/18 04/06/18 04/06/18 05:42 05:42 05:48 WBC 7.0 RBC 4.17 Hgb 12.6 L Hct 38 L MCV 92 MCH 30 MCHC 33 RDW 15 Plt Count 163 MPV 7.5 Neut % (Auto) 70.2 Lymph % (Auto) 18.9 [place] % (Auto) 7.9 Eos % (Auto) 2.3 Baso % (Auto) 0.7 Absolute Neuts (auto) 4.9 Absolute Lymphs (auto) 1.3 Absolute Monos (auto) 0.6 Absolute Eos (auto) 0.2 Absolute Basos (auto) 0 Absolute Nucleated RBC 0 Nucleated RBC % 0.1 Sodium 141 Potassium 4.0 Chloride 110 Carbon Dioxide 23 Anion Gap 8 BUN 29 H Creatinine 1.13 Est GFR ( Amer) 74.5 Est GFR (Non-Af Amer) 61.5 BUN/Creatinine Ratio 25.7 H Glucose 99 Calcium 9.1 C-Reactive Protein 9.74 H Syphilis IgG Antibody Nonreactive Microbiology and Other Data: . Diagnostic Imaging: COMPARISONS: Head CT dated April 03, 2018 TECHNIQUE: The following sequences were obtained of the head: Sagittal T1- weighted images, axial T2-weighted images, axial FLAIR images, axial susceptibility weighted images, axial T1-weighted images. Additionally, axial diffusion-weighted images were obtained with calculated apparent diffusion coefficients. FINDINGS: The study is limited by patient motion artifact. HEMORRHAGE/INFARCT: There is no hemorrhage or acute infarct. MASSES/SHIFT: There is no mass or shift. EXTRA-AXIAL SPACES/MENINGES: There are no extra-axial fluid collections. SULCI AND VENTRICLES: There is diffuse and proportional enlargement of the sulci and ventricles. CEREBRUM: There are multiple scattered small foci of elevated T2/FLAIR signal within the periventricular and subcortical white matter. BRAINSTEM: There is elevated T2/FLAIR signal centrally within the yobany. CEREBELLUM: There are no focal parenchymal abnormalities. The cerebellar tonsils are normal in size and position. SELLA: The sella is normal. PINEAL: The pineal region is clear. CP ANGLE/TEMPORAL BONES: The labyrinthine structures are grossly normal. VESSELS: Normal flow-voids are noted within the visualized vertebral vasculature. DIFFUSION ABNORMALITIES: There are no diffusion abnormalities. PARANASAL SINUSES/MASTOIDS: The paranasal sinuses are clear. ORBITS: The orbits are unremarkable. BONES AND SOFT TISSUE: No bone or soft tissue abnormalities are noted. OTHER: None IMPRESSION: 1. DIFFUSE INVOLUTIONAL CHANGE 2. THERE ARE MULTIPLE FOCI OF ELEVATED T2/FLAIR SIGNAL IN THE PERIVENTRICULAR, SUBCORTICAL, AND PONTINE WHITE MATTER. WHILE NONSPECIFIC, THE APPEARANCE IS SUGGESTIVE OF CHRONIC SMALL VESSEL ISCHEMIC CHANGE. 3. THERE IS NO RESTRICTED DIFFUSION TO SUGGEST ACUTE INFARCT, THOUGH EVALUATION IS LIMITED BY PATIENT MOTION ARTIFACT. HISTORY: altered mental status COMPARISONS: None TECHNIQUE: Multiple contiguous axial CT scans were obtained of the head without intravenous contrast. FINDINGS: HEMORRHAGE/INFARCT: There is no hemorrhage or acute infarct. MASSES/SHIFT: There is no mass or shift. EXTRA-AXIAL SPACES: There are no extra-axial fluid collections. SULCI AND VENTRICLES: There is diffuse and proportional enlargement of the sulci and ventricles. CEREBRUM: There is hypoattenuation of the periventricular and subcortical white matter. BRAINSTEM: There are no focal parenchymal abnormalities. CEREBELLUM: There are no focal parenchymal abnormalities. VESSELS: The vessels are grossly normal. PARANASAL SINUSES: The paranasal sinuses are clear. ORBITS: The orbits are unremarkable. BONES AND SOFT TISSUE: No bone or soft tissue abnormalities are noted. OTHER: None IMPRESSION: NO ACUTE INTRACRANIAL PATHOLOGY. DIFFUSE INVOLUTIONAL CHANGE WITH CHRONIC SMALL VESSEL ISCHEMIC CHANGES. 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 - Patient Problems (1) Change in mental status Comment: - Etiology unclear - CXR: No active cardiopulmonary disease. - Head CT and Brain MRI as above - TSH WNL - Neurology consulting and I very much appreciate their assistance - B12 > than normal limits. MMA pending - Lethargic again today, but was reported to be sitting up and more awake last evening around dinner time. Today I suspected lethargy is due to Ativan given in shipping receiving manager hours. 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 - There has been concern that there is a component of mental illess, therefore, consult requested. - Seraquel started by Neurology. (3) Atrial fibrillation Comment: - Rate controlled in 80s - Tele d/c'd as patient removing and not necessary at this time - Cont full dose ASA (4) CAD (coronary artery disease) Comment: - Continue ASA - Normotensive - No home medications - Hydralazine prn (5) Creatinine elevation Comment: - Elevated on admission - Within normal limits today after IVF - Continue IV fluids as patient is lethargic and not taking PO (6) ETOH abuse Comment: - Continue WAM protocol - Daughter reports 1 to 2 [place] in 12 hr period - Unclear whether truly withdrawing - I have reduced frequency and dosing of WAM due to Ativan given for restlessness which could have been more due to delirium. Consider stopping WAM when appropriate - Monitor (7) DVT prophylaxis Comment: -Will change Heparin to [id number] Status and Disposition: -As above -For PT eval in AM Attending: José Miguel Belle
--- NOTE | 2018-04-06 17:05 | CONS ---
NEUROLOGY FOLLOWUP NOTE: DATE OF FOLLOWUP: 04/06/18 LOCATION: He is an inpatient in room 405. HOSPITALIST: Sandra Duran NP CHIEF COMPLAINT: Cognitive impairment, mental status changes. INTERVAL HISTORY: Since yesterday, Onesimo had an EEG, which revealed diffuse slowing, but no epileptiform discharges. He was on a [facility] protocol and got Ativan for agitation last night. He has been pretty sedated through today. He has not been able to take anything orally today. MEDICATIONS: Reviewed and he is on: 1. Aspirin 81 mg p.o. daily. 2. Folic acid 1 mg p.o. daily. 3. Heparin subcutaneous 5000 units q.12 hours. 4. Lorazepam per [facility] protocol, which was I believe just discontinued. 5. Thiamine 250 mg IV q.24 hours. PHYSICAL EXAM: On exam, he is lethargic and restless. Temperature 97.8, blood pressure 156/73, heart rate 80. Respiratory rate 16 and oxygen saturation is 98 % on room air. He responds to voice to mumble and stated that he feels "pretty good." He would not open his eyes to command. He is fidgety and restless and picks at things. He moves his extremities equally. There is no myoclonus. LABORATORY DATA: Includes a negative syphilis IgG antibody test. Chemistries today are notable for a normal basic metabolic profile. CRP is borderline elevated at 9.74. IMPRESSION AND PLAN: Impression is that of delirium on top of probable dementia. His son is present today and reports that he has probably been seeing things for at least 6 months or more. He would ask who is out by the barn. He also feels he probably is getting cognitively impaired for at least 6 months or more. He attributed it to poor hearing and poor vision. He says that he walks independently, but shuffles. He says he has only fallen if it is like muddy or slippery. Mr. Vargas may have diffuse Lewy body disease, but more likely with his age of onset he has Alzheimer's disease. I cannot find a precipitating factor for his hallucinations and so it appears to be part of his dementia. I recommend trying very low dose Seroquel 12.5 mg at bedtime to see if we can improve the hallucinations without giving him sedating medications. I would recommend staying away from lorazepam if at all possible. If his behaviors and hallucinations continue, then I would recommend psychiatric consultation for recommendations regarding medications. [id number]/[facility] #: [id number] SULAIMAN
[2018-04-06] MEDS: Thiamine IV* 250 MG in NS 0.9% 100 ML* 100 ML IV SCH (17:49)
[2018-04-06] MEDS: QUEtiapine TAB* 25 MG PO SCH (19:38)
[2018-04-07] MEDS: NS 0.9% 1000 ML** 1,000 ML IV SCH ×2 (08:22→18:13)
[2018-04-07] MEDS: Heparin VIAL(*) 5000 UNITS/ML VIAL (FIVE THOUSAND) SUBCUT SCH ×2 (08:22→20:24)
[2018-04-07] MEDS: QUEtiapine TAB* 25 MG PO SCH ×2 (08:22→20:23)
[2018-04-07] MEDS: Aspirin 81 mg CHEW TAB* 81 MG TAB.CHEW PO SCH (08:22)
[2018-04-07] MEDS: Folic Acid TAB* 1 MG PO SCH (08:44)
[2018-04-07] MEDS: Multivitamins/Minerals TAB PO SCH (08:44)
[2018-04-07] MEDS ORDERED: Haloperidol INJ IV/IM* 5 MG/ML AMP IM PRN (09:24)
--- NOTE | 2018-04-07 12:48 | EEG ---
DATE OF STUDY: 04/06/2018. He is an inpatient in room 405. REFERRING PHYSICIAN: Dr. Carmen. CLINICAL HISTORY: Gradual cognitive decline with more recent more rapid decline. The patient has epi sodes of starring and is having hallucinations. MEDICATIONS: Haloperidol, Lorazepam, folic acid, aspirin. EEG DESCRIPTION: This 16-channel EEG is remarkable for background rhythms consisting of a theta pred ominant pattern. Lower voltage faster rhythms are also seen bifrontally. Rhythms are generally symm etric and synchronous. The patient is described as hallucinating, fidgeting, and mumbling. Activati on procedures are not attempted. The patient does go into stage 2 sleep with parasagittal sleep spin dles and more prominent central slowing noted. There are no clinical events, other than as described above. There are no focal or epileptiform discharges. INTERPRETATION: Abnormal EEG due to slowing, disorganization and background rhythms consistent with diffuse cerebral dysfunction. There are focal or epileptiform features to this recording. [id number]/[facility] #: [id number]
--- NOTE | 2018-04-07 16:04 | PN ---
Subjective Date of Service: 04/07/18 Interval History: Resting in bed on assessment. Patient responds to voice but does not follow command and unintelligible speech. Patient pulling away equally. Patient is showing no signs of withdrawal. Per nursing he was not combative and did not exhibit signs of withdrawal last evening. I discussed patient's status with his Daughter. We also discussed the patient's wishes. She reports that he has told her brother (who is the healthcare proxy) that he would not want to be resuscitated or intubated. Plan is for the healthcare proxy to visit tomorrow and complete MOLST. Objective Active Medications: Acetaminophen (Tylenol Tab*) 650 mg PO Q4H PRN PRN Reason: PAIN Aspirin (Aspirin 81 Mg Chew Tab*) 81 mg PO DAILY [facility] Last Admin: 04/07/18 08:22 Dose: 81 mg Folic Acid (Folvite Tab*) 1 mg PO DAILY [facility] Last Admin: 04/07/18 08:44 Dose: Not Given Haloperidol Lactate (Haldol Inj Iv/Im*) 2.5 mg IM Q6H PRN PRN Reason: AGITATION Heparin Sodium (Porcine) (Heparin Vial(*)) 5,000 units SUBCUT BID [facility] Last Admin: 04/07/18 08:22 Dose: 5,000 units Hydralazine HCl (Apresoline Iv*) 5 mg IV SLOW PU Q6H PRN PRN Reason: BLOOD PRESSURE Last Admin: 04/06/18 19:37 Dose: 5 mg Sodium Chloride (Ns 0.9% 1000 Ml) 1,000 mls @ 75 mls/hr IV PER RATE [facility] Last Admin: 04/07/18 08:22 Dose: 75 mls/hr Thiamine HCl 250 mg/ Sodium (Chloride) 102.5 mls @ 205 mls/hr IV Q24H [facility] Last Admin: 04/06/18 17:49 Dose: 205 mls/hr Multivitamins/Minerals (Theragran/Minerals Tab*) 1 tab PO DAILY [facility] Last Admin: 04/07/18 08:44 Dose: Not Given Quetiapine Fumarate (Seroquel Tab*) 12.5 mg PO BEDTIME [facility] Vital Signs - 8 hr 04/07/18 04/07/18 04/07/18 08:00 11:04 11:21 Temperature 98.2 F Pulse Rate 86 Respiratory 18 16 Rate Blood Pressure 134/61 (mmHg) O2 Sat by Pulse 99 Oximetry Oxygen Devices in Use Now: None Appearance: Comfortable, NAD Eyes: No Scleral Icterus Ears/Nose/Mouth/Throat: Clear Oropharnyx, Mucous Membranes Moist Neck: NL Appearance and Movements; NL JVP Respiratory: Symmetrical Chest Expansion and Respiratory Effort, Clear to Auscultation Cardiovascular: NL Sounds; No Murmurs; No JVD, No Edema, - - Irregular (hx of afib) Abdominal: NL Sounds; No Tenderness; No Distention Lymphatic: No Cervical Adenopathy Extremities: No Edema Skin: No Rash or Ulcers Neurological: NL Muscle Strength and Tone Nutrition: - Result Diagrams: 04/06/18 05:48 04/06/18 05:42 Additional Lab and Data: Microbiology and Other Data: . Diagnostic Imaging: COMPARISONS: Head CT dated April 03, 2018 TECHNIQUE: The following sequences were obtained of the head: Sagittal T1- weighted images, axial T2-weighted images, axial FLAIR images, axial susceptibility weighted images, axial T1-weighted images. Additionally, axial diffusion-weighted images were obtained with calculated apparent diffusion coefficients. FINDINGS: The study is limited by patient motion artifact. HEMORRHAGE/INFARCT: There is no hemorrhage or acute infarct. MASSES/SHIFT: There is no mass or shift. EXTRA-AXIAL SPACES/MENINGES: There are no extra-axial fluid collections. SULCI AND VENTRICLES: There is diffuse and proportional enlargement of the sulci and ventricles. CEREBRUM: There are multiple scattered small foci of elevated T2/FLAIR signal within the periventricular and subcortical white matter. BRAINSTEM: There is elevated T2/FLAIR signal centrally within the yobany. CEREBELLUM: There are no focal parenchymal abnormalities. The cerebellar tonsils are normal in size and position. SELLA: The sella is normal. PINEAL: The pineal region is clear. CP ANGLE/TEMPORAL BONES: The labyrinthine structures are grossly normal. VESSELS: Normal flow-voids are noted within the visualized vertebral vasculature. DIFFUSION ABNORMALITIES: There are no diffusion abnormalities. PARANASAL SINUSES/MASTOIDS: The paranasal sinuses are clear. ORBITS: The orbits are unremarkable. BONES AND SOFT TISSUE: No bone or soft tissue abnormalities are noted. OTHER: None IMPRESSION: 1. DIFFUSE INVOLUTIONAL CHANGE 2. THERE ARE MULTIPLE FOCI OF ELEVATED T2/FLAIR SIGNAL IN THE PERIVENTRICULAR, SUBCORTICAL, AND PONTINE WHITE MATTER. WHILE NONSPECIFIC, THE APPEARANCE IS SUGGESTIVE OF CHRONIC SMALL VESSEL ISCHEMIC CHANGE. 3. THERE IS NO RESTRICTED DIFFUSION TO SUGGEST ACUTE INFARCT, THOUGH EVALUATION IS LIMITED BY PATIENT MOTION ARTIFACT. HISTORY: altered mental status COMPARISONS: None TECHNIQUE: Multiple contiguous axial CT scans were obtained of the head without intravenous contrast. FINDINGS: HEMORRHAGE/INFARCT: There is no hemorrhage or acute infarct. MASSES/SHIFT: There is no mass or shift. EXTRA-AXIAL SPACES: There are no extra-axial fluid collections. SULCI AND VENTRICLES: There is diffuse and proportional enlargement of the sulci and ventricles. CEREBRUM: There is hypoattenuation of the periventricular and subcortical white matter. BRAINSTEM: There are no focal parenchymal abnormalities. CEREBELLUM: There are no focal parenchymal abnormalities. VESSELS: The vessels are grossly normal. PARANASAL SINUSES: The paranasal sinuses are clear. ORBITS: The orbits are unremarkable. BONES AND SOFT TISSUE: No bone or soft tissue abnormalities are noted. OTHER: None IMPRESSION: NO ACUTE INTRACRANIAL PATHOLOGY. DIFFUSE INVOLUTIONAL CHANGE WITH CHRONIC SMALL VESSEL ISCHEMIC CHANGES. EKG Data: . 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 - Patient Problems (1) Change in mental status Comment: - Suspected etiology is delirium and dementia. Son reports yesterday that they have noted signs of patient's decline for about 6 months. - CXR: No active cardiopulmonary disease. - Head CT and Brain MRI as above - TSH WNL - Neurology consulting and I very much appreciate their assistance - B12 > than normal limits. MMA pending - Continue monitoring (2) Agitation Comment: - Has not had any noted agitation in approx 24 hrs - Cont Seraquel low dose (3) Atrial fibrillation Comment: - Cont full dose ASA (4) CAD (coronary artery disease) Comment: - Continue ASA - Normotensive - No home medications - Hydralazine prn (5) SHAQUILLE (acute kidney injury) Comment: - Elevated on admission - No normalized after IVF - Continue IV fluids as patient is lethargic and not taking much PO (6) ETOH abuse Comment: - I have discontinued WAM as patient has been free from signs of withdrawal. - Continue to monitor routinely (7) DVT prophylaxis Comment: -Will change Heparin to [id number] Status and Disposition: Inpatient. Discharge home when medically stable. Will most likely need some kind of home care. Attending: JoséM iguel Belle
[2018-04-07] MEDS: Thiamine IV* 250 MG in NS 0.9% 100 ML* 100 ML IV SCH (18:13)
[2018-04-08] MEDS: NS 0.9% 1000 ML** 1,000 ML IV SCH (07:43)
[2018-04-08 08:21] LABS: Albumin 3.2 g/dL (3.2-5.2); Albumin/Globulin Ratio 1.3 (1-3); BUN/Creatinine Ratio 21.2 (8-20); Calcium 8.8 mg/dL (8.6-10.3); EGFR African American 81.9 (>60); EGFR Non-African American 67.7 (>60); Globulin 2.4 g/dL (2-4); Magnesium 1.6 mg/dL (1.9-2.7); Potassium 3.6 mmol/L (3.5-5.0); Total Bilirubin 1.3 mg/dL (0.2-1.0); Total Protein 5.6 g/dL (6.4-8.9)
[2018-04-08] MEDS: Folic Acid TAB* 1 MG PO SCH (09:09)
[2018-04-08] MEDS: Multivitamins/Minerals TAB PO SCH (09:09)
[2018-04-08] MEDS: Heparin VIAL(*) 5000 UNITS/ML VIAL (FIVE THOUSAND) SUBCUT SCH ×2 (09:09→20:25)
[2018-04-08] MEDS: Aspirin 81 mg CHEW TAB* 81 MG TAB.CHEW PO SCH (09:09)
[2018-04-08] MEDS ORDERED: Magnesium Sulfate 2 GM IV* 2 GM/50 ML BAG IVPB ONE (17:17)
[2018-04-08] MEDS ORDERED: Potassium Chlor TAB* 20 MEQ TAB.ER PO ONE (17:24)
--- NOTE | 2018-04-08 17:32 | PN ---
Subjective Date of Service: 04/08/18 Interval History: Per nursing patient was somewhat agitated last evening, but was easily redirected by son who remained at bedside. Patient was more awake today and responded to simple questions. Patient was also up in chair today. Objective Active Medications: Acetaminophen (Tylenol Tab*) 650 mg PO Q4H PRN PRN Reason: PAIN Aspirin (Aspirin 81 Mg Chew Tab*) 81 mg PO DAILY [facility] Last Admin: 04/08/18 09:09 Dose: 81 mg Folic Acid (Folvite Tab*) 1 mg PO DAILY [facility] Last Admin: 04/08/18 09:09 Dose: 1 mg Haloperidol Lactate (Haldol Inj Iv/Im*) 2.5 mg IM Q6H PRN PRN Reason: AGITATION Heparin Sodium (Porcine) (Heparin Vial(*)) 5,000 units SUBCUT BID [facility] Last Admin: 04/08/18 09:09 Dose: 5,000 units Hydralazine HCl (Apresoline Iv*) 5 mg IV SLOW PU Q6H PRN PRN Reason: BLOOD PRESSURE Last Admin: 04/06/18 19:37 Dose: 5 mg Sodium Chloride (Ns 0.9% 1000 Ml) 1,000 mls @ 75 mls/hr IV PER RATE [facility] Last Admin: 04/08/18 07:43 Dose: 75 mls/hr Thiamine HCl 250 mg/ Sodium (Chloride) 102.5 mls @ 205 mls/hr IV Q24H [facility] Last Admin: 04/07/18 18:13 Dose: 205 mls/hr Magnesium Sulfate (Magnesium Sulfate 2 Gm Iv*) 2 gm in 50 mls @ 50 mls/hr IVPB ONCE ONE Stop: 04/08/18 18:16 Multivitamins/Minerals (Theragran/Minerals Tab*) 1 tab PO DAILY [facility] Last Admin: 04/08/18 09:09 Dose: 1 tab Quetiapine Fumarate (Seroquel Tab*) 12.5 mg PO BEDTIME [facility] Last Admin: 04/07/18 20:23 Dose: 12.5 mg Vital Signs - 8 hr 04/08/18 04/08/18 11:28 15:40 Temperature 98.6 F 99.2 F Pulse Rate 95 92 Respiratory 17 16 Rate Blood Pressure 127/41 133/74 (mmHg) O2 Sat by Pulse 99 100 Oximetry Oxygen Devices in Use Now: None Appearance: Comfortable, NAD Eyes: No Scleral Icterus Ears/Nose/Mouth/Throat: Clear Oropharnyx, Mucous Membranes Moist Neck: NL Appearance and Movements; NL JVP Respiratory: Symmetrical Chest Expansion and Respiratory Effort, Clear to Auscultation Cardiovascular: NL Sounds; No Murmurs; No JVD, No Edema, - - Irregular (hx of afib) Abdominal: NL Sounds; No Tenderness; No Distention Lymphatic: No Cervical Adenopathy Extremities: No Clubbing, Cyanosis Skin: No Rash or Ulcers Neurological: NL Muscle Strength and Tone Nutrition: Taking PO's Result Diagrams: 04/06/18 05:48 04/08/18 07:54 Additional Lab and Data: Laboratory Results - last 24 hr 04/04/18 04/06/18 04/08/18 06:42 05:48 07:54 Sodium 140 Potassium 3.6 Chloride 109 Carbon Dioxide 22 Anion Gap 9 BUN 22 Creatinine 1.04 Est GFR ( Amer) 81.9 Est GFR (Non-Af Amer) 67.7 BUN/Creatinine Ratio 21.2 H Glucose 123 H Calcium 8.8 Magnesium 1.6 L Total Bilirubin 1.30 H AST 18 ALT 10 Alkaline Phosphatase 56 Total Protein 5.6 L Albumin 3.2 Globulin 2.4 Albumin/Globulin Ratio 1.3 Methylmalonic Acid 0.20 Anti-Nuclear Antibody 0.3 Microbiology and Other Data: . Diagnostic Imaging: COMPARISONS: Head CT dated April 03, 2018 TECHNIQUE: The following sequences were obtained of the head: Sagittal T1- weighted images, axial T2-weighted images, axial FLAIR images, axial susceptibility weighted images, axial T1-weighted images. Additionally, axial diffusion-weighted images were obtained with calculated apparent diffusion coefficients. FINDINGS: The study is limited by patient motion artifact. HEMORRHAGE/INFARCT: There is no hemorrhage or acute infarct. MASSES/SHIFT: There is no mass or shift. EXTRA-AXIAL SPACES/MENINGES: There are no extra-axial fluid collections. SULCI AND VENTRICLES: There is diffuse and proportional enlargement of the sulci and ventricles. CEREBRUM: There are multiple scattered small foci of elevated T2/FLAIR signal within the periventricular and subcortical white matter. BRAINSTEM: There is elevated T2/FLAIR signal centrally within the yobany. CEREBELLUM: There are no focal parenchymal abnormalities. The cerebellar tonsils are normal in size and position. SELLA: The sella is normal. PINEAL: The pineal region is clear. CP ANGLE/TEMPORAL BONES: The labyrinthine structures are grossly normal. VESSELS: Normal flow-voids are noted within the visualized vertebral vasculature. DIFFUSION ABNORMALITIES: There are no diffusion abnormalities. PARANASAL SINUSES/MASTOIDS: The paranasal sinuses are clear. ORBITS: The orbits are unremarkable. BONES AND SOFT TISSUE: No bone or soft tissue abnormalities are noted. OTHER: None IMPRESSION: 1. DIFFUSE INVOLUTIONAL CHANGE 2. THERE ARE MULTIPLE FOCI OF ELEVATED T2/FLAIR SIGNAL IN THE PERIVENTRICULAR, SUBCORTICAL, AND PONTINE WHITE MATTER. WHILE NONSPECIFIC, THE APPEARANCE IS SUGGESTIVE OF CHRONIC SMALL VESSEL ISCHEMIC CHANGE. 3. THERE IS NO RESTRICTED DIFFUSION TO SUGGEST ACUTE INFARCT, THOUGH EVALUATION IS LIMITED BY PATIENT MOTION ARTIFACT. HISTORY: altered mental status COMPARISONS: None TECHNIQUE: Multiple contiguous axial CT scans were obtained of the head without intravenous contrast. FINDINGS: HEMORRHAGE/INFARCT: There is no hemorrhage or acute infarct. MASSES/SHIFT: There is no mass or shift. EXTRA-AXIAL SPACES: There are no extra-axial fluid collections. SULCI AND VENTRICLES: There is diffuse and proportional enlargement of the sulci and ventricles. CEREBRUM: There is hypoattenuation of the periventricular and subcortical white matter. BRAINSTEM: There are no focal parenchymal abnormalities. CEREBELLUM: There are no focal parenchymal abnormalities. VESSELS: The vessels are grossly normal. PARANASAL SINUSES: The paranasal sinuses are clear. ORBITS: The orbits are unremarkable. BONES AND SOFT TISSUE: No bone or soft tissue abnormalities are noted. OTHER: None IMPRESSION: NO ACUTE INTRACRANIAL PATHOLOGY. DIFFUSE INVOLUTIONAL CHANGE WITH CHRONIC SMALL VESSEL ISCHEMIC CHANGES. EKG Data: . 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 - Patient Problems (1) Change in mental status Comment: - Suspected etiology is delirium and dementia. Son reports yesterday that they have noted signs of patient's decline for about 6 months. - CXR: No active cardiopulmonary disease. - Head CT and Brain MRI as above - TSH WNL - Neurology consulting and I very much appreciate their assistance - B12 > than normal limits. MMA wnl - Improving with low dose Seraqual and avoiding PRNs such as Ativan (2) Agitation Comment: - Some agitation last evening, but redirected easily by son. Did not require PRN - Avoid PRNs if possible. If combative low dose Haldol ordered. - Cont Seraquel low dose (3) Atrial fibrillation Comment: - Cont ASA (4) CAD (coronary artery disease) Comment: - Continue ASA - Normotensive - No home medications - Hydralazine prn (5) SHAQUILLE (acute kidney injury) Comment: - Elevated on admission - No normalized after IVF (6) ETOH abuse Comment: - I have discontinued WAM as patient has been free from signs of withdrawal. - Continue to monitor routinely (7) DVT prophylaxis Comment: -Will change Heparin to [id number] Status and Disposition: Inpatient. Discharge home when medically stable. Will most likely need some kind of home care. Attending: José Miguel Belle
[2018-04-08] MEDS: QUEtiapine TAB* 25 MG PO SCH (20:25)
[2018-04-08] MEDS: Thiamine TAB* 100 MG TAB PO SCH (20:25)
[2018-04-09] MEDS: Folic Acid TAB* 1 MG PO SCH (09:01)
[2018-04-09] MEDS: Aspirin 81 mg CHEW TAB* 81 MG TAB.CHEW PO SCH (09:01)
[2018-04-09] MEDS: Multivitamins/Minerals TAB PO SCH (09:01)
[2018-04-09] MEDS: Heparin VIAL(*) 5000 UNITS/ML VIAL (FIVE THOUSAND) SUBCUT SCH ×2 (09:01→21:29)
[2018-04-09] MEDS: Thiamine TAB* 100 MG TAB PO SCH (09:01)
[2018-04-09 09:40] LABS: ABS Basophils 0 10^3/ul (0-0.2); ABS Eosinophils 0.1 10^3/ul (0-0.6); ABS Monocytes 0.7 10^3/ul (0-0.8); ABS Neutrophils 5.5 10^3/ul (1.5-7.7); ABS Nucleated RBC 0 10^3/ul; Eosinophil % 0.8 %; Hematocrit 36 % (42-52); Lymphocyte % 13.3 %; Mean Corpuscular HGB Conc 33 g/dl (31-36); Mean Corpuscular Hemoglobin 31 pg (27-31); Mean Corpuscular Volume 92 fL (80-94); Mean Platelet Volume 8.3 fL (7.4-10.4); Nucleated Red Blood Cells % 0.1; Platelet Count 150 10^3/ul (150-450); Red Blood Count 3.94 10^6/ul (4.00-5.40); Red Cell Distribution Width 14 % (10.5-15); White Blood Count 7.3 10^3/ul (3.5-10.8)
[2018-04-09 09:49] LABS: BUN/Creatinine Ratio 23.6 (8-20); EGFR African American 80.2 (>60); EGFR Non-African American 66.2 (>60); Potassium 3.7 mmol/L (3.5-5.0)
--- NOTE | 2018-04-09 11:15 | PN ---
Subjective Date of Service: 04/09/18 Interval History: Pt is sleeping. He wakes occasionally and responds to some questions, but mumbles responses. Son and grandson are present at bedside; son states this is his first time with pt, as he traveled from [place] and is unsure of the details of the progression of his father's illness. He states that he and his siblings believe that Mr. Vargas may have his days and nights reversed and nursing staff report that patient was awake all night and was restless. Son reports that the patient is eating well, stating he ate approximately 2/3 of his breakfast. He is drinking okay as well. Nursing reported bruising and pain with movement of R arm. No recent fall, but it was noted that the patient was found walking approximately 8/10 mile from home prior to admission, and family is unsure what occurred during walk. When asked about pain, pt states that his shoulder, elbow, and wrist hurt. Objective Active Medications: Acetaminophen (Tylenol Tab*) 650 mg PO Q4H PRN PRN Reason: PAIN Aspirin (Aspirin 81 Mg Chew Tab*) 81 mg PO DAILY [facility] Last Admin: 04/09/18 09:01 Dose: 81 mg Folic Acid (Folvite Tab*) 1 mg PO DAILY [facility] Last Admin: 04/09/18 09:01 Dose: 1 mg Haloperidol Lactate (Haldol Inj Iv/Im*) 2.5 mg IM Q6H PRN PRN Reason: AGITATION Heparin Sodium (Porcine) (Heparin Vial(*)) 5,000 units SUBCUT BID [facility] Last Admin: 04/09/18 09:01 Dose: 5,000 units Hydralazine HCl (Apresoline Iv*) 5 mg IV SLOW PU Q6H PRN PRN Reason: BLOOD PRESSURE Last Admin: 04/06/18 19:37 Dose: 5 mg Multivitamins/Minerals (Theragran/Minerals Tab*) 1 tab PO DAILY [facility] [place] Last Admin: 04/09/18 09:01 Dose: 1 tab Quetiapine Fumarate (Seroquel Tab*) 12.5 mg PO BEDTIME [facility] Last Admin: 04/08/18 20:25 Dose: 12.5 mg Thiamine HCl (Vitamin B-1 Tab*) 100 mg PO DAILY [facility] [place] Last Admin: 04/09/18 09:01 Dose: 100 mg Vital Signs: Temp Pulse Resp BP Pulse Ox 99.0 F 77 20 134/57 100 04/09/18 16:17 04/09/18 16:17 04/09/18 16:17 04/09/18 16:17 04/09/18 16:17 Oxygen Devices in Use Now: None Appearance: Pt is laying in bed sleeping. He wakes when spoken to and responds , but quickly falls back to sleep. Ears/Nose/Mouth/Throat: NL Teeth, Lips, Gums, Clear Oropharnyx, Mucous Membranes Moist Neck: NL Appearance and Movements; NL JVP, Trachea Midline Respiratory: Symmetrical Chest Expansion and Respiratory Effort, - - Pt unable to follow instructions for deep inhalations and exhalations. Anterior and lateral breath sounds CTAB. Cardiovascular: NL Sounds; No Murmurs; No JVD, No Edema, - - Irregular. H/o a- fib. Abdominal: NL Sounds; No Tenderness; No Distention, No Hepatosplenomegaly Extremities: No Edema, No Clubbing, Cyanosis, - - R shoulder TTP. R elbow pain with external rotation. Patches of ecchymosis about R elbow and distal. RUE with deformity at lateral wrist. Neurological: - - Nutrition: Malnutrition Diagnosis/Plan Malnutrition Assessment by Registered Dietitian: Malnutrition Assessment Clinical Characteristics Acute,Severe Malnutrition Assessment: - Average intake of 25% of meals x past 5 days Criteria - Moderate temporal muscle wasting Malnutrition Assessment: Per discussion w/ pt's son this morning, will Interventions send Ensure Enlive w/ meals. 350 kcals, 20 grams protein per serving. Malnutrition Assessment: Goals 1. Adequate intake to promote lean body mass repletion, maintain hydration, and prevent wt loss Result Diagrams: 04/09/18 09:14 04/09/18 09:14 Additional Lab and Data: Laboratory Results - last 24 hr 04/04/18 04/06/18 04/08/18 06:42 05:48 07:54 Sodium 140 Potassium 3.6 Chloride 109 Carbon Dioxide 22 Anion Gap 9 BUN 22 Creatinine 1.04 Est GFR ( Amer) 81.9 Est GFR (Non-Af Amer) 67.7 BUN/Creatinine Ratio 21.2 H Glucose 123 H Calcium 8.8 Magnesium 1.6 L Total Bilirubin 1.30 H AST 18 ALT 10 Alkaline Phosphatase 56 Total Protein 5.6 L Albumin 3.2 Globulin 2.4 Albumin/Globulin Ratio 1.3 Methylmalonic Acid 0.20 Anti-Nuclear Antibody 0.3 Microbiology and Other Data: . Diagnostic Imaging: COMPARISONS: Head CT dated April 03, 2018 TECHNIQUE: The following sequences were obtained of the head: Sagittal T1- weighted images, axial T2-weighted images, axial FLAIR images, axial susceptibility weighted images, axial T1-weighted images. Additionally, axial diffusion-weighted images were obtained with calculated apparent diffusion coefficients. FINDINGS: The study is limited by patient motion artifact. HEMORRHAGE/INFARCT: There is no hemorrhage or acute infarct. MASSES/SHIFT: There is no mass or shift. EXTRA-AXIAL SPACES/MENINGES: There are no extra-axial fluid collections. SULCI AND VENTRICLES: There is diffuse and proportional enlargement of the sulci and ventricles. CEREBRUM: There are multiple scattered small foci of elevated T2/FLAIR signal within the periventricular and subcortical white matter. BRAINSTEM: There is elevated T2/FLAIR signal centrally within the yobany. CEREBELLUM: There are no focal parenchymal abnormalities. The cerebellar tonsils are normal in size and position. SELLA: The sella is normal. PINEAL: The pineal region is clear. CP ANGLE/TEMPORAL BONES: The labyrinthine structures are grossly normal. VESSELS: Normal flow-voids are noted within the visualized vertebral vasculature. DIFFUSION ABNORMALITIES: There are no diffusion abnormalities. PARANASAL SINUSES/MASTOIDS: The paranasal sinuses are clear. ORBITS: The orbits are unremarkable. BONES AND SOFT TISSUE: No bone or soft tissue abnormalities are noted. OTHER: None IMPRESSION: 1. DIFFUSE INVOLUTIONAL CHANGE 2. THERE ARE MULTIPLE FOCI OF ELEVATED T2/FLAIR SIGNAL IN THE PERIVENTRICULAR, SUBCORTICAL, AND PONTINE WHITE MATTER. WHILE NONSPECIFIC, THE APPEARANCE IS SUGGESTIVE OF CHRONIC SMALL VESSEL ISCHEMIC CHANGE. 3. THERE IS NO RESTRICTED DIFFUSION TO SUGGEST ACUTE INFARCT, THOUGH EVALUATION IS LIMITED BY PATIENT MOTION ARTIFACT. HISTORY: altered mental status COMPARISONS: None TECHNIQUE: Multiple contiguous axial CT scans were obtained of the head without intravenous contrast. FINDINGS: HEMORRHAGE/INFARCT: There is no hemorrhage or acute infarct. MASSES/SHIFT: There is no mass or shift. EXTRA-AXIAL SPACES: There are no extra-axial fluid collections. SULCI AND VENTRICLES: There is diffuse and proportional enlargement of the sulci and ventricles. CEREBRUM: There is hypoattenuation of the periventricular and subcortical white matter. BRAINSTEM: There are no focal parenchymal abnormalities. CEREBELLUM: There are no focal parenchymal abnormalities. VESSELS: The vessels are grossly normal. PARANASAL SINUSES: The paranasal sinuses are clear. ORBITS: The orbits are unremarkable. BONES AND SOFT TISSUE: No bone or soft tissue abnormalities are noted. OTHER: None IMPRESSION: NO ACUTE INTRACRANIAL PATHOLOGY. DIFFUSE INVOLUTIONAL CHANGE WITH CHRONIC SMALL VESSEL ISCHEMIC CHANGES. EKG Data: . 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 - Patient Problems (1) Change in mental status Comment: - Suspected etiology is delirium and dementia. Son reports that they have noted signs of patient's decline for about 6 months. - CXR: No active cardiopulmonary disease. - Head CT and Brain MRI as above - TSH WNL - Neurology consulting and I very much appreciate their assistance - B12 > than normal limits. MMA wnl - Improving with low dose Seroquel and avoiding PRNs such as Ativan (2) Right arm pain Comment: -R shoulder, elbow wrist pain -X-rays ordered: -R shoulder: osteopenia, OA -R elbow: osteopenia, OA, ST swelling suggestive of olecranon bursitis -R wrist: osteopenia, OA, suggestive of scapholunate advanced collapse, PAD -Ortho consulted and will see pt tomorrow; recommended R wrist brace placement until then (ordered) (3) Agitation Comment: - Some aggitation, anxiety, and up all night. Did not require PRN. - Avoid PRNs if possible. If combative low dose Haldol ordered. - Cont Seraquel low dose (4) SHAQUILLE (acute kidney injury) Current Visit: Yes Status: Acute Code(s): N17.9 - ACUTE KIDNEY FAILURE, UNSPECIFIED SNOMED Code(s): 15710616 Comment: - Elevated on admission - Now normalized after IVF (5) Atrial fibrillation Current Visit: Yes Status: Acute Code(s): I48.91 - UNSPECIFIED ATRIAL FIBRILLATION SNOMED Code(s): 54736506 Comment: - Cont ASA (6) CAD (coronary artery disease) Current Visit: Yes Status: Acute Code(s): I25.10 - ATHSCL HEART DISEASE OF [place] CORONARY ARTERY W/O ANG PCTRS SNOMED Code(s): 78081964 Comment: - Continue ASA - Normotensive - No home medications - Hydralazine prn (7) ETOH abuse Current Visit: Yes Status: Acute Code(s): F10.10 - ALCOHOL ABUSE, UNCOMPLICATED SNOMED Code(s): 23522938 Comment: - I have discontinued WAM as patient has been free from signs of withdrawal. - Continue to monitor routinely (8) DVT prophylaxis Current Visit: Yes Status: Acute Code(s): YRE2637 - SNOMED Code(s): 962903525 Comment: -Will change Heparin to SQq12H Status and Disposition: Inpatient. Discharge home when medically stable. Will most likely need some kind of home care.
[2018-04-09] MEDS: QUEtiapine TAB* 25 MG PO SCH (21:29)
[2018-04-10 07:15] LABS: BUN/Creatinine Ratio 27.5 (8-20); Calcium 8.9 mg/dL (8.6-10.3); EGFR African American 83.8 (>60); EGFR Non-African American 69.2 (>60); Potassium 3.6 mmol/L (3.5-5.0)
[2018-04-10 09:12] LABS: C Reactive Protein 188.8 mg/L (<8.01); Uric Acid 6.3 mg/dL (4.4-7.6)
--- NOTE | 2018-04-10 09:37 | PN ---
Subjective Date of Service: 04/10/18 Interval History: HOSPITALIST PROGRESS NOTE Patient seen and examined at bedside. Care reviewed and d/w Crystal De Jesus RN. As per son, he's more oriented. He was sleep when I saw him and although he woke up, he did not interact much. Family History: Unchanged from Admission Social History: Unchanged from Admission Past Medical History: Unchanged from Admission Objective Active Medications: Acetaminophen (Tylenol Tab*) 650 mg PO Q4H PRN PRN Reason: PAIN Aspirin (Aspirin 81 Mg Chew Tab*) 81 mg PO DAILY [facility] Last Admin: 04/09/18 09:01 Dose: 81 mg Folic Acid (Folvite Tab*) 1 mg PO DAILY [facility] Last Admin: 04/09/18 09:01 Dose: 1 mg Haloperidol Lactate (Haldol Inj Iv/Im*) 2.5 mg IM Q6H PRN PRN Reason: AGITATION Heparin Sodium (Porcine) (Heparin Vial(*)) 5,000 units SUBCUT BID [facility] Last Admin: 04/09/18 21:29 Dose: 5,000 units Hydralazine HCl (Apresoline Iv*) 5 mg IV SLOW PU Q6H PRN PRN Reason: BLOOD PRESSURE Last Admin: 04/06/18 19:37 Dose: 5 mg Multivitamins/Minerals (Theragran/Minerals Tab*) 1 tab PO DAILY [facility] Last Admin: 04/09/18 09:01 Dose: 1 tab Quetiapine Fumarate (Seroquel Tab*) 12.5 mg PO BEDTIME [facility] Last Admin: 04/09/18 21:29 Dose: 12.5 mg Thiamine HCl (Vitamin B-1 Tab*) 100 mg PO DAILY [facility] Last Admin: 04/09/18 09:01 Dose: 100 mg Vital Signs - 8 hr 04/10/18 02:57 Temperature 98.8 F Pulse Rate 99 Respiratory 18 Rate Blood Pressure 131/55 (mmHg) O2 Sat by Pulse 97 Oximetry Oxygen Devices in Use Now: None Appearance: Elderly gentleman sitting up in bed in NAD. Eyes: No Scleral Icterus Ears/Nose/Mouth/Throat: Mucous Membranes Moist Neck: Trachea Midline Respiratory: Symmetrical Chest Expansion and Respiratory Effort, Clear to Auscultation Cardiovascular: - - Normal S1 and S2, irregular Extremities: - - There is arthritis of right wrist, right elbow, and right knee , with ROM limitation due to pain Neurological: - - Sleeping, arousable to voice, Ox1 (self) - Nutrition: Malnutrition Diagnosis/Plan Malnutrition Assessment by Registered Dietitian: Malnutrition Assessment Clinical Characteristics Acute,Severe Malnutrition Assessment: - Average intake of 25% of meals x past 5 days Criteria - Moderate temporal muscle wasting Malnutrition Assessment: Per discussion w/ pt's son this morning, will Interventions send Ensure Enlive w/ meals. 350 kcals, 20 grams protein per serving. Malnutrition Assessment: Goals 1. 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 - Patient Problems (1) Delirium Comment: - Neurology input appreciated - probable delirium superimposed on dementia. Son reports that they have noted signs of patient's decline for about 6 months. - No signs of infection - only one fever spike during hospital stay, negative CXR and UA. - CT and MRI brain showed no acute lesions. - TSH 1.23, B12 > 1450, RPR is negative. - Continue low dose Seroquel and avoiding benzos. Haldol PRN agitation. (2) Oligoarthritis Comment: - Involving right wrist, elbow, and knee. - Per son description, patient has h/o gout and his symptoms now are compatible. - ESR 58, CRP 188, uric acid 6.3. - Xrays reviewed. - Ortho input appreciated - degenerative arthritis and gout flare. - With his CKD and single kidney would avoid NSAIDs - start low dose prednisone and Colchicine. (3) Atrial fibrillation Comment: - Rate controlled, not on meds. (4) Severe protein-calorie malnutrition Comment: - As evidenced by average intake of 25% of meals x past 5 days, moderate temporal muscle wasting. - Continue supplements as per dietitian recommendation. (5) DVT prophylaxis Comment: - SQ heparin. (6) DNR (do not resuscitate) Status and Disposition: Inpatient. Son updated at bedside. Will likely need STEPHENIE.
[2018-04-10] MEDS: Heparin VIAL(*) 5000 UNITS/ML VIAL (FIVE THOUSAND) SUBCUT SCH ×2 (09:42→22:07)
[2018-04-10] MEDS: Thiamine TAB* 100 MG TAB PO SCH (09:43)
[2018-04-10] MEDS: Folic Acid TAB* 1 MG PO SCH (09:43)
[2018-04-10] MEDS: Aspirin 81 mg CHEW TAB* 81 MG TAB.CHEW PO SCH (09:43)
[2018-04-10] MEDS: Multivitamins/Minerals TAB PO SCH (09:44)
--- NOTE | 2018-04-10 14:11 | CONS ---
CONSULTATION REPORT: DATE OF CONSULT: 04/10/18 CHIEF COMPLAINT: Right wrist and knee pain. HISTORY OF PRESENT ILLNESS: Onesimo is an 87-year-old man who came into the hospital with altered mental status. He lives at home with his . He has subsequently developed right wrist pain, swelling, and redness and right knee pain, swelling, and redness. His sons says that he has a history of gout. The son is not certain if he ever injured his wrist. Mr. Vargas is not able to provide history. Additionally, his son says he only has one kidney and he is not certain why that is. The son said that Mr. Vargas had a large mass removed from his elbow several years ago and they took out some toothpaste type material. PHYSICAL EXAMINATION: Mr. Vargas is an elderly gentleman sitting up in bed. He is not responding to my questions, but his son is helpful in answering the questions. The right wrist has moderate swelling, mild erythema, and very painful range of motion. He can move his fingers in flexion and extension, but is quite painful. Wrist motion is very painful. He has some limited elbow motion as well. The right knee has a small area of erythema on the dorsal aspect and a mild effusion. 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 PLAN: Plan is for hydration. Perhaps steroids or colchicine will be helpful for relieving the wrist pain and swelling. The patient is placed in a brace. I will see him in followup as needed after he is discharged from the hospital. [id number]/[facility] #: [id number] SULAIMAN
[2018-04-10] MEDS: predniSONE TAB* 10 MG PO SCH (15:45)
[2018-04-10] MEDS: Colchicine* 0.6 MG TAB PO SCH (15:45)
[2018-04-10] MEDS: QUEtiapine TAB* 25 MG PO SCH (22:05)
[2018-04-10] MEDS: Polyethylene Glycol 3350* 17 GM PACKET PO SCH (22:06)
[2018-04-10] MEDS: Bisacodyl EC TAB* 5 MG PO SCH (22:06)
--- NOTE | 2018-04-11 09:41 | PN ---
Progress Note - Progress Note Date of Service: 04/11/18 SOAP: Subjective: []Pt seen at bedside for follow up of right wrist and right knee pain. His daughter is at bedside and relays that he has not been complaining of pain. He has known osteoarthritis and history of gout. At baseline, when his joints become painful or stiff movement helps to "get him moving". Objective: General: NAD RUE: Right wrist with removable brace. There is mild swelling and mild erythema about the wrist, it is not hot, very stiff and limited ROM but I am able to produce a small amount of PROM without any pain. He is able to flex and extend his digits. PROM of elbow and shoulder intact without pain. RLE: golf ball sized area of erythema superior to the patella with 2 dime sized satellite lesions of erythema inferolateral to the patella not associated with tenderness or warmth. Mild knee effusion, nonpainful to AROM Assessment: []Degenerative arthritis of the right knee and wrist and a flare up of gout as well. Plan: [] Plan is unchanged from ortho standpoint - for hydration, steroids or colchicine. Continue wrist brace Dr Hill will see him in followup as needed after he is discharged from the hospital. Temp Pulse Resp BP Pulse Ox 98.1 F 104 18 147/60 97 04/11/18 04:36 04/11/18 04:36 04/11/18 04:36 04/11/18 04:36 04/11/18 04:36 Laboratory Last Values WBC 7.3 10^3/ul (3.5-10.8) 04/09/18 09:14 RBC 3.94 10^6/ul (4.00-5.40) L 04/09/18 09:14 Hgb 12.0 g/dl (14.0-18.0) L 04/09/18 09:14 Hct 36 % (42-52) L 04/09/18 09:14 MCV 92 fL (80-94) 04/09/18 09:14 MCH 31 pg (27-31) 04/09/18 09:14 MCHC 33 g/dl (31-36) 04/09/18 09:14 RDW 14 % (10.5-15) 04/09/18 09:14 Plt Count 150 10^3/ul (150-450) 04/09/18 09:14 MPV 8.3 fL (7.4-10.4) 04/09/18 09:14 Neut % (Auto) 75.4 % 04/09/18 09:14 Lymph % (Auto) 13.3 % 04/09/18 09:14 [place] % (Auto) 9.9 % 04/09/18 09:14 Eos % (Auto) 0.8 % 04/09/18 09:14 Baso % (Auto) 0.6 % 04/09/18 09:14 Absolute Neuts (auto) 5.5 10^3/ul (1.5-7.7) 04/09/18 09:14 Absolute Lymphs (auto) 1.0 10^3/ul (1.0-4.8) 04/09/18 09:14 Absolute Monos (auto) 0.7 10^3/ul (0-0.8) 04/09/18 09:14 Absolute Eos (auto) 0.1 10^3/ul (0-0.6) 04/09/18 09:14 Absolute Basos (auto) 0 10^3/ul (0-0.2) 04/09/18 09:14 Absolute Nucleated RBC 0 10^3/ul 04/09/18 09:14 Nucleated RBC % 0.1 04/09/18 09:14 ESR 56 mm/Hr (0-20) H 04/10/18 08:24 INR (Anticoag Therapy) 1.04 (0.77-1.02) H 04/03/18 17:37 Sodium 141 mmol/L (135-145) 04/10/18 06:47 Potassium 3.6 mmol/L (3.5-5.0) 04/10/18 06:47 Chloride 110 mmol/L (101-111) 04/10/18 06:47 Carbon Dioxide 23 mmol/L (22-32) 04/10/18 06:47 Anion Gap 8 mmol/L (2-11) 04/10/18 06:47 BUN 28 mg/dL (6-24) H 04/10/18 06:47 Creatinine 1.02 mg/dL (0.67-1.17) 04/10/18 06:47 Est GFR ( Amer) 83.8 (>60) 04/10/18 06:47 Est GFR (Non-Af Amer) 69.2 (>60) 04/10/18 06:47 BUN/Creatinine Ratio 27.5 (8-20) H 04/10/18 06:47 Glucose 125 mg/dL (70-100) H 04/10/18 06:47 Lactic Acid 1.0 mmol/L (0.5-2.0) 04/03/18 17:38 Uric Acid 6.3 mg/dL (4.4-7.6) 04/10/18 08:23 Calcium 8.9 mg/dL (8.6-10.3) 04/10/18 06:47 Phosphorus 3.6 mg/dL (2.5-5.0) 04/05/18 07:03 Magnesium 2.0 mg/dL (1.9-2.7) 04/09/18 09:14 Total Bilirubin 1.30 mg/dL (0.2-1.0) H 04/08/18 07:54 Direct Bilirubin 0.50 mg/dL (0.03-0.18) H 04/08/18 07:54 AST 18 U/L (13-39) 04/08/18 07:54 ALT 10 U/L (7-52) 04/08/18 07:54 Alkaline Phosphatase 56 U/L (34-104) 04/08/18 07:54 Ammonia 36 mcmol/L (16-53) 04/03/18 17:37 Total Creatine Kinase 65 U/L (10-223) 04/03/18 17:37 Troponin I 0.03 ng/mL (<0.04) 04/03/18 17:37 C-Reactive Protein 188.80 mg/L (<8.01) H 04/10/18 08:23 B-Natriuretic Peptide 355 pg/mL (<=100) H 04/03/18 17:37 Total Protein 5.6 g/dL (6.4-8.9) L 04/08/18 07:54 Albumin 3.2 g/dL (3.2-5.2) 04/08/18 07:54 Globulin 2.4 g/dL (2-4) 04/08/18 07:54 Albumin/Globulin Ratio 1.3 (1-3) 04/08/18 07:54 Triglycerides 63 mg/dL 04/04/18 06:42 Cholesterol 151 mg/dL 04/04/18 06:42 LDL Cholesterol 72 mg/dL 04/04/18 06:42 HDL Cholesterol 66.8 mg/dL 04/04/18 06:42 Vitamin B12 > 1450 pg/mL (180-914) H 04/04/18 06:42 Methylmalonic Acid 0.20 nmol/mL (<=0.40) 04/04/18 06:42 TSH 1.23 mcIU/mL (0.34-5.60) 04/03/18 17:37 Urine Color Yellow 04/03/18 16:43 Urine Appearance Clear 04/03/18 16:43 Urine pH 5.0 (5-9) 04/03/18 16:43 Ur Specific [place] 1.013 (1.010-1.030) 04/03/18 16:43 Urine Protein Negative (Negative) 04/03/18 16:43 Urine Ketones Negative (Negative) 04/03/18 16:43 Urine Blood Negative (Negative) 04/03/18 16:43 Urine Nitrate Negative (Negative) 04/03/18 16:43 Urine Bilirubin Negative (Negative) 04/03/18 16:43 Urine Urobilinogen Negative (Negative) 04/03/18 16:43 Ur Leukocyte Esterase Negative (Negative) 04/03/18 16:43 Urine Glucose Negative (Negative) 04/03/18 16:43 Urine Ascorbic Acid * (Negative) A 04/03/18 16:43 Salicylates < 2.50 mg/dL (<30) 04/03/18 17:37 Urine Opiates Screen None detected (None Detect) 04/03/18 16:43 Acetaminophen < 15 mcg/mL 04/03/18 17:37 Ur Barbiturates Screen None detected (None Detect) 04/03/18 16:43 Ur Phencyclidine Scrn None detected (None Detect) 04/03/18 16:43 Ur Amphetamines Screen None detected (None Detect) 04/03/18 16:43 U Benzodiazepines Scrn None detected (None Detect) 04/03/18 16:43 Urine Cocaine Screen None detected (None Detect) 04/03/18 16:43 U Cannabinoids Screen None detected (None Detect) 04/03/18 16:43 Serum Alcohol < 10 mg/dL (<10) 04/03/18 17:37 Anti-Nuclear Antibody 0.3 U 04/06/18 05:48 Syphilis IgG Antibody Nonreactive (Nonreactive) 04/06/18 05:42
[2018-04-11] MEDS: Polyethylene Glycol 3350* 17 GM PACKET PO SCH ×2 (09:49→20:18)
[2018-04-11] MEDS: Aspirin 81 mg CHEW TAB* 81 MG TAB.CHEW PO SCH (09:50)
[2018-04-11] MEDS: predniSONE TAB* 10 MG PO SCH (09:50)
[2018-04-11] MEDS: Thiamine TAB* 100 MG TAB PO SCH (09:50)
[2018-04-11] MEDS: Multivitamins/Minerals TAB PO SCH (09:50)
[2018-04-11] MEDS: Heparin VIAL(*) 5000 UNITS/ML VIAL (FIVE THOUSAND) SUBCUT SCH ×2 (09:50→22:04)
[2018-04-11] MEDS: Folic Acid TAB* 1 MG PO SCH (09:50)
[2018-04-11] MEDS: Colchicine* 0.6 MG TAB PO SCH (09:50)
--- NOTE | 2018-04-11 12:51 | PN ---
Subjective Date of Service: 04/11/18 Interval History: HOSPITALIST PROGRESS NOTE Patient seen and examined at bedside. Care reviewed and d/w Annika Peralta RN. He is more awake today; right wrist, elbow, and knee pain seems to be improved as he's able to move his right side more; able to bear weight on RLE. Family History: Unchanged from Admission Social History: Unchanged from Admission Past Medical History: Unchanged from Admission Objective Active Medications: Acetaminophen (Tylenol Tab*) 650 mg PO Q4H PRN PRN Reason: PAIN Aspirin (Aspirin 81 Mg Chew Tab*) 81 mg PO DAILY [facility] Last Admin: 04/11/18 09:50 Dose: 81 mg Bisacodyl (Dulcolax Ec Tab*) 5 mg PO BEDTIME [facility] Last Admin: 04/10/18 22:06 Dose: 5 mg Colchicine (Colcrys*) 0.6 mg PO DAILY [facility] Last Admin: 04/11/18 09:50 Dose: 0.6 mg Folic Acid (Folvite Tab*) 1 mg PO DAILY [facility] Last Admin: 04/11/18 09:50 Dose: 1 mg Haloperidol Lactate (Haldol Inj Iv/Im*) 2.5 mg IM Q6H PRN PRN Reason: AGITATION Heparin Sodium (Porcine) (Heparin Vial(*)) 5,000 units SUBCUT BID [facility] Last Admin: 04/11/18 09:50 Dose: 5,000 units Hydralazine HCl (Apresoline Iv*) 5 mg IV SLOW PU Q6H PRN PRN Reason: BLOOD PRESSURE Last Admin: 04/06/18 19:37 Dose: 5 mg Multivitamins/Minerals (Theragran/Minerals Tab*) 1 tab PO DAILY [facility] Last Admin: 04/11/18 09:50 Dose: 1 tab Polyethylene Glycol/Electrolytes (Miralax*) 17 gm PO 0800,2100 [facility] Last Admin: 04/11/18 09:49 Dose: 17 gm Prednisone (Deltasone Tab*) 10 mg PO DAILY [facility] Last Admin: 04/11/18 09:50 Dose: 10 mg Quetiapine Fumarate (Seroquel Tab*) 12.5 mg PO BEDTIME [facility] Last Admin: 04/10/18 22:05 Dose: 12.5 mg Thiamine HCl (Vitamin B-1 Tab*) 100 mg PO DAILY [facility] Last Admin: 04/11/18 09:50 Dose: 100 mg Vital Signs - 8 hr 04/11/18 04/11/18 07:54 09:00 Temperature 97.0 F Pulse Rate 76 Respiratory 18 18 Rate Blood Pressure 119/60 (mmHg) O2 Sat by Pulse 96 Oximetry Oxygen Devices in Use Now: None Appearance: Elderly gentleman sitting up in a recliner in NAD. Eyes: No Scleral Icterus Ears/Nose/Mouth/Throat: Mucous Membranes Moist Neck: Trachea Midline Respiratory: Symmetrical Chest Expansion and Respiratory Effort, Clear to Auscultation Cardiovascular: RRR - Normal S1 and S2 Extremities: - - Right wrist immobilizer, mild elbow and knee edema and warmth Neurological: - - AAOx1 (self only), BALLESTEROS - Nutrition: Malnutrition Diagnosis/Plan Malnutrition Assessment by Registered Dietitian: Malnutrition Assessment Clinical Characteristics Acute,Severe Malnutrition Assessment: - Average intake of 25% of meals x past 5 days Criteria - Moderate temporal muscle wasting Malnutrition Assessment: Per discussion w/ pt's son this morning, will Interventions send Ensure Enlive w/ meals. 350 kcals, 20 grams protein per serving. Malnutrition Assessment: Goals 1. 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 - Patient Problems (1) Delirium Comment: - Neurology input appreciated - probable delirium superimposed on dementia. Son reports that they have noted signs of patient's decline for about 6 months. - No signs of infection - only one fever spike during hospital stay, negative CXR and UA. - CT and MRI brain showed no acute lesions. - TSH 1.23, B12 > 1450, RPR is negative. - Continue low dose Seroquel and avoiding benzos. Haldol PRN agitation. - Mental status seems to be improving and he's more awake and interactive today. (2) Oligoarthritis Comment: - Involving right wrist, elbow, and knee. - Per son description, patient has h/o gout and his symptoms now are compatible. - ESR 58, CRP 188, uric acid 6.3. - Xrays reviewed. - Ortho input appreciated - degenerative arthritis and gout flare. - With his CKD and single kidney would avoid NSAIDs - continue low dose prednisone and Colchicine - showing good response. (3) Atrial fibrillation Comment: - Rate controlled, not on meds. (4) Severe protein-calorie malnutrition Comment: - As evidenced by average intake of 25% of meals x past 5 days, moderate temporal muscle wasting. - Continue supplements as per dietitian recommendation. (5) DVT prophylaxis Comment: - SQ heparin. (6) DNR (do not resuscitate) Status and Disposition: Inpatient. Daughter updated at bedside. Will likely need STEPHENIE.
[2018-04-11] MEDS: Bisacodyl EC TAB* 5 MG PO SCH (20:18)
[2018-04-11] MEDS: QUEtiapine TAB* 25 MG PO SCH (20:18)
[2018-04-12 07:48] LABS: ABS Basophils 0.1 10^3/ul (0-0.2); ABS Eosinophils 0.2 10^3/ul (0-0.6); ABS Lymphocytes 1.4 10^3/ul (1.0-4.8); ABS Monocytes 0.5 10^3/ul (0-0.8); ABS Neutrophils 4.2 10^3/ul (1.5-7.7); ABS Nucleated RBC 0 10^3/ul; Eosinophil % 2.8 %; Hematocrit 38 % (42-52); Hemoglobin 12.6 g/dl (14.0-18.0); Lymphocyte % 22.2 %; Mean Corpuscular HGB Conc 33 g/dl (31-36); Mean Corpuscular Hemoglobin 30 pg (27-31); Mean Corpuscular Volume 91 fL (80-94); Nucleated Red Blood Cells % 0.1; Platelet Count 203 10^3/ul (150-450); Red Blood Count 4.15 10^6/ul (4.00-5.40); Red Cell Distribution Width 15 % (10.5-15); White Blood Count 6.3 10^3/ul (3.5-10.8)
[2018-04-12 08:00] LABS: BUN/Creatinine Ratio 34.9 (8-20); C Reactive Protein 110.55 mg/L (<8.01); Calcium 9.4 mg/dL (8.6-10.3); EGFR African American 80.2 (>60); EGFR Non-African American 66.2 (>60); Potassium 3.8 mmol/L (3.5-5.0)
[2018-04-12] MEDS: Aspirin 81 mg CHEW TAB* 81 MG TAB.CHEW PO SCH (09:36)
[2018-04-12] MEDS: Heparin VIAL(*) 5000 UNITS/ML VIAL (FIVE THOUSAND) SUBCUT SCH ×2 (09:36→23:20)
[2018-04-12] MEDS: Polyethylene Glycol 3350* 17 GM PACKET PO SCH ×2 (09:36→23:21)
[2018-04-12] MEDS: Thiamine TAB* 100 MG TAB PO SCH (09:36)
[2018-04-12] MEDS: Multivitamins/Minerals TAB PO SCH (09:36)
[2018-04-12] MEDS: predniSONE TAB* 10 MG PO SCH (09:36)
[2018-04-12] MEDS: Folic Acid TAB* 1 MG PO SCH (09:36)
[2018-04-12] MEDS: Colchicine* 0.6 MG TAB PO SCH (09:36)
--- NOTE | 2018-04-12 12:12 | PN ---
Subjective Date of Service: 04/12/18 Interval History: HOSPITALIST PROGRESS NOTE Patient seen and examined at bedside. Care reviewed and d/w Joyce Adkins RN. He has had improvement of right elbow, wrist and knee pain; mobility has improved. More awake and communicative. He had an episode of choking on coffee during breakfast (witnessed by me), probably be cause he took a large gulp. Family History: Unchanged from Admission Social History: Unchanged from Admission Past Medical History: Unchanged from Admission Objective Active Medications: Acetaminophen (Tylenol Tab*) 650 mg PO Q4H PRN PRN Reason: PAIN Aspirin (Aspirin 81 Mg Chew Tab*) 81 mg PO DAILY [facility] Last Admin: 04/12/18 09:36 Dose: 81 mg Bisacodyl (Dulcolax Ec Tab*) 5 mg PO BEDTIME [facility] Last Admin: 04/11/18 20:18 Dose: 5 mg Colchicine (Colcrys*) 0.6 mg PO DAILY [facility] Last Admin: 04/12/18 09:36 Dose: 0.6 mg Folic Acid (Folvite Tab*) 1 mg PO DAILY [facility] Last Admin: 04/12/18 09:36 Dose: 1 mg Haloperidol Lactate (Haldol Inj Iv/Im*) 2.5 mg IM Q6H PRN PRN Reason: AGITATION Heparin Sodium (Porcine) (Heparin Vial(*)) 5,000 units SUBCUT BID [facility] Last Admin: 04/12/18 09:36 Dose: 5,000 units Hydralazine HCl (Apresoline Iv*) 5 mg IV SLOW PU Q6H PRN PRN Reason: BLOOD PRESSURE Last Admin: 04/06/18 19:37 Dose: 5 mg Multivitamins/Minerals (Theragran/Minerals Tab*) 1 tab PO DAILY [facility] Last Admin: 04/12/18 09:36 Dose: 1 tab Polyethylene Glycol/Electrolytes (Miralax*) 17 gm PO 0800,2100 [facility] Last Admin: 04/12/18 09:36 Dose: 17 gm Prednisone (Deltasone Tab*) 10 mg PO DAILY [facility] Last Admin: 04/12/18 09:36 Dose: 10 mg Quetiapine Fumarate (Seroquel Tab*) 12.5 mg PO BEDTIME [facility] Last Admin: 04/11/18 20:18 Dose: 12.5 mg Thiamine HCl (Vitamin B-1 Tab*) 100 mg PO DAILY [facility] Last Admin: 04/12/18 09:36 Dose: 100 mg Vital Signs - 8 hr 04/12/18 04/12/18 04/12/18 07:30 08:00 09:45 Temperature 96.6 F 96.6 F Pulse Rate 80 75 Respiratory 18 20 16 Rate Blood Pressure 136/70 94/49 (mmHg) O2 Sat by Pulse 98 98 Oximetry 04/12/18 11:19 Temperature 97.0 F Pulse Rate 88 Respiratory 18 Rate Blood Pressure 139/73 (mmHg) O2 Sat by Pulse 100 Oximetry Oxygen Devices in Use Now: None Appearance: Pleasant elderly gentleman sitting up in a chair in NAD. Eyes: No Scleral Icterus Ears/Nose/Mouth/Throat: Mucous Membranes Moist Neck: Trachea Midline Respiratory: Symmetrical Chest Expansion and Respiratory Effort, Clear to Auscultation Cardiovascular: RRR - Normal S1 and S2 Extremities: - - Right wrist, elbow, and knee arthritis significantly improved Neurological: - - AAOx1 (self only), BALLESTEROS - Nutrition: Malnutrition Diagnosis/Plan Malnutrition Assessment by Registered Dietitian: Malnutrition Assessment Clinical Characteristics Acute,Severe Malnutrition Assessment: - Average intake of 25% of meals x past 5 days Criteria - Moderate temporal muscle wasting Malnutrition Assessment: Per discussion w/ pt's son this morning, will Interventions send Ensure Enlive w/ meals. 350 kcals, 20 grams protein per serving. Malnutrition Assessment: Goals 1. 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 - Patient Problems (1) Delirium Comment: - Neurology input appreciated - probable delirium superimposed on dementia. Son reports that they have noted signs of patient's decline for about 6 months. - No signs of infection - only one fever spike during hospital stay, negative CXR and UA. - CT and MRI brain showed no acute lesions. - TSH 1.23, B12 > 1450, RPR is negative. - Continue low dose Seroquel and avoiding benzos. Haldol PRN agitation. - Mental status continues to improve and he's more awake and interactive today. (2) Oligoarthritis Comment: - Involving right wrist, elbow, and knee. - Per son description, patient has h/o gout and his symptoms now are compatible. - CRP down to 110. - Xrays reviewed. - Ortho input appreciated - degenerative arthritis and gout flare. - With his CKD and single kidney would avoid NSAIDs - continue low dose prednisone and Colchicine - showing good response. (3) Atrial fibrillation Comment: - Rate controlled, not on meds. (4) Severe protein-calorie malnutrition Comment: - As evidenced by average intake of 25% of meals x past 5 days, moderate temporal muscle wasting. - Continue supplements as per dietitian recommendation. (5) DVT prophylaxis Comment: - SQ heparin. (6) DNR (do not resuscitate) Status and Disposition: Inpatient. Son updated at bedside. Awaiting bed availability at [facility].
[2018-04-12 21:55] LABS: Erythrocyte Sed Rate 42 mm/Hr (0-20)
--- NOTE | 2018-04-12 22:34 | DS ---
CC: Dr. Gabriel Saravia; Dr. Carmen * DISCHARGE SUMMARY: DATE OF ADMISSION: 04/03/18. DATE OF DISCHARGE: 04/13/18. PRIMARY CARE PROVIDER: Dr. Gabriel Saravia. [place] Swing. DISCHARGE DIAGNOSES: 1. Delirium. 2. Dementia. 3. 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 4. Severe protein-calorie malnutrition. SECONDARY DIAGNOSES: 1. Atrial fibrillation. 2. Coronary artery disease. 3. 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 MEDICATION LIST: 1. Acetaminophen 650 mg p.o. q.4 hours p.r.n. pain or fever. 2. Aspirin 81 mg p.o. daily. 3. Dulcolax 5 mg p.o. at bedtime. Hold for loose stools. 4. Colchicine 0.6 mg p.o. daily for 30 days and stop. 5. Folic acid 1 mg p.o. daily. 6. Multivitamin 1 tablet p.o. daily. 7. MiraLAX 17 g p.o. b.i.d. Hold for loose stools. 8. Prednisone 10 mg p.o. daily for 5 days and then 5 mg for 5 days and stop. 9. Seroquel 12.5 mg p.o. at bedtime. 10. Thiamine 100 mg p.o. daily. HOSPITAL COURSE: Mr. Vargas is an 87-year-old male with a past medical history as stated above that was brought into emergency room by family due to altered mental status. Three days prior to the admission, the patient had developed visual hallucinations and he had also been found walking about a mile from his home. For more details about his presentation, I refer you to his history and physical. He was admitted for further evaluation of his confusion. Initial workup in the emergency room included a CT of the brain without contrast that showed no acute intracranial pathology, only diffuse involutional change with chronic small vessel ischemic changes. MRI of the brain showed diffuse involutional change, multiple foci of elevated T2 FLAIR signal in the periventricular, subcortical, and pontine white matter but there was no restricted diffusion to suggest acute infarct, although there was some limitation due to motion artifact. The patient was carla in consultation by Neurology (Dr. Carmen). His impression was that the patient likely had delirium superimposed on dementia. He had quite a bit of atrophy and vascular disease on his MRI scan. He has had progressive decline of his memory issues for at least 6 months or more and there was a steeper decline for 2 weeks prior to admission with sort of hallucinations and some paranoid behavior. As part of his workup, the patient had a TSH that was normal at 1.23, syphilis IgG antibody that was negative. Vitamin B12 was greater than 1450. Seroquel was added to his regimen and he had improvement of his mental status. EEG was abnormal due to slowing, disorganization and background rhythms consistent with diffuse cerebral dysfunction but there were no focal or epileptiform features. Echocardiogram showed ejection fraction of 50% to 55% with global left ventricular wall motion and contractility within normal limits. No significant valve disease and borderline pulmonary hypertension. The patient's confusion has improved but he is not yet back to his baseline. He is being more awake and interactive with family and has not reported hallucinations recently. The patient also developed right wrist, right elbow and right knee pain, edema and warmth. He had multiple x-rays performed that were negative for fracture. They did show osteoarthritis. The patient's presentation was compatible with gout flare. His ESR was elevated at 56 as well as his CRP at 188. His uric acid was normal at 6.3. The patient was seen in consultation by Orthopedics (Dr. Hill) and she agreed with the diagnosis. Her recommendation was for medical management and the patient can follow up with her as outpatient as needed. Due to the patient's age and solitary kidney, decision was made to give steroids instead of NSAIDs and colchicine was also added. He had significant improvement of arthritis, especially his knee and now he is able to move his right side and was also able to bear weight on the right lower extremity and ambulate. The patient also had signs of severe protein-calorie malnutrition with moderate temporal muscle wasting and average intake of 25% of meals initially. His diet was liberalized to improve his oral intake. Although the patient had improvement of his symptoms, he is still deconditioned and he is not ready to return to independent life as prior to admission. He was found to have skilled needs and he was offered a bed for rehab at [facility]. The patient is medically stable for discharge at this time. The patient was seen in consultation by speech pathology and initially he was recommended to have a pureed diet with nectar thick liquids. As he continued to improve, he was reevaluated and at this point, he was able to tolerate a regular diet with thin liquids. PHYSICAL EXAMINATION: Vital Signs: Temperature 97.2, heart rate 87, respiratory rate 20, oxygen saturation 100% on room air, blood pressure is 106/ 56. General: The patient is a pleasant elderly gentleman sitting up in a recliner in no acute distress. CVS: Normal S1 and S2. Irregularly irregular . Chest: Breath sounds bilaterally with no added sounds. Extremities: The patient has olecranon bursitis of the right elbow. The arthritis in the elbow, wrist and knee are much improved. He still has some joint effusion on the right knee, but the edema and warmth are resolved at this time. Neuro: He is alert and oriented x1 to self only. Able to move all 4 extremities. DIET: Regular diet. ACTIVITY: Continue PT and OT as tolerated. DISPOSITION: To [facility] for rehab. STATUS WHILE IN THE HOSPITAL: Inpatient. CONDITION AT THE TIME OF DISCHARGE: Fair. Please keep in mind this is a summarized version of this patient's prolonged and complex hospital stay. If you need more information, please feel free to call me at [phone] or please obtain full medical records. TIME SPENT: Approximately 50 minutes were spent to complete this discharge. [id number]/CPS #: [id number] SULAIMAN
[2018-04-12] MEDS: Bisacodyl EC TAB* 5 MG PO SCH (23:19)
[2018-04-12] MEDS: QUEtiapine TAB* 25 MG PO SCH (23:19)
[2018-04-13] MEDS: Polyethylene Glycol 3350* 17 GM PACKET PO SCH (09:17)
[2018-04-13] MEDS: Heparin VIAL(*) 5000 UNITS/ML VIAL (FIVE THOUSAND) SUBCUT SCH (09:17)
[2018-04-13] MEDS: Colchicine* 0.6 MG TAB PO SCH (09:19)
[2018-04-13] MEDS: Thiamine TAB* 100 MG TAB PO SCH (09:20)
[2018-04-13] MEDS: Aspirin 81 mg CHEW TAB* 81 MG TAB.CHEW PO SCH (09:20)
[2018-04-13] MEDS: Folic Acid TAB* 1 MG PO SCH (09:20)
[2018-04-13] MEDS: predniSONE TAB* 10 MG PO SCH (09:20)
[2018-04-13] MEDS: Multivitamins/Minerals TAB PO SCH (09:21)
--- NOTE | 2018-04-13 11:29 | CONSULT ---
Subjective Date of Service: 04/13/18 Interval History: Mr. Vargas is an 87 yo male with PMH significant for solitary kidney, afib, and CAD who presented to the hospital for altered mental status and hallucinations. He was initially admitted to rule out CVA/TIA. He had a negative stroke workup and was seen in consultation by neurology who felt that his presentation was delirium superimposed on dementia. He also developed a gout flair while in the hospital and was seen by orthopedics. During his hospitalization is ended up with 2 skin tears, one to each arm. These were treated with Optifoam dressings. Family History: Unchanged from Admission Social History: Unchanged from Admission Past Medical History: Unchanged from Admission Review of Systems - Measurements Intake and Output: Intake and Output Last 24 Hours 04/11/18 04/12/18 04/13/18 04/14/18 06:59 06:59 06:59 06:59 Intake Total 948 450 9731 240 Output Total 300 Balance 600 480 940 240 Intake: Oral 426 336 8452 240 Output: Urine 300 Other: Estimated Void Large Medium Large Date of Last Bowel unknown Movement # Bowel Movements 0 1 1 Estimated Stool Amount Medium Medium # Voids 0 2 1 - Review of Systems General Comments: No complaints at this time. Constitutional Symptoms: Negative: Fever, Other - Chills Objective Active Medications: Acetaminophen (Tylenol Tab*) 650 mg PO Q4H PRN Reason: PAIN Aspirin (Aspirin 81 Mg Chew Tab*) 81 mg PO DAILY [facility] Bisacodyl (Dulcolax Ec Tab*) 5 mg PO BEDTIME [facility] Colchicine (Colcrys*) 0.6 mg PO DAILY [facility] Folic Acid (Folvite Tab*) 1 mg PO DAILY [facility] Haloperidol Lactate (Haldol Inj Iv/Im*) 2.5 mg IM Q6H PRNN Reason: AGITATION Heparin Sodium (Porcine) (Heparin Vial(*)) 5,000 units SUBCUT BID [facility] Hydralazine HCl (Apresoline Iv*) 5 mg IV SLOW PU Q6H PRN Reason: BLOOD PRESSURE Multivitamins/Minerals (Theragran/Minerals Tab*) 1 tab PO DAILY [facility] Polyethylene Glycol/Electrolytes (Miralax*) 17 gm PO 0800,2100 [facility] Prednisone (Deltasone Tab*) 10 mg PO DAILY [facility] Quetiapine Fumarate (Seroquel Tab*) 12.5 mg PO BEDTIME [facility] Thiamine HCl (Vitamin B-1 Tab*) 100 mg PO DAILY [facility] Vital Signs - 8 hr 04/13/18 04/13/18 03:31 05:57 Temperature 98.5 F Pulse Rate 90 78 Respiratory 17 17 Rate Blood Pressure 146/78 154/75 (mmHg) O2 Sat by Pulse 97 99 Oximetry Oxygen Devices in Use Now: None Appearance: NAD, sitting up in a chair Ears/Nose/Mouth/Throat: Mucous Membranes Moist Skin: - - See skin documentation below Neurological: - - Alert and Oriented to Person, Place, Confused Nutrition: Taking PO's - Nutrition: Malnutrition Diagnosis/Plan Malnutrition Assessment by Registered Dietitian: Malnutrition Assessment Clinical Characteristics Acute,Severe Malnutrition Assessment: - Average intake of 25% of meals x past 5 days Criteria - Moderate temporal muscle wasting Malnutrition Assessment: Per discussion w/ pt's son this morning, will Interventions send Ensure Enlive w/ meals. 350 kcals, 20 grams protein per serving. Malnutrition Assessment: Goals 1. Adequate intake to promote lean body mass repletion, maintain hydration, and prevent wt loss Result Diagrams: 04/12/18 07:34 04/12/18 07:34 Skin Deviation Note - Skin Deviation Findings Right arm - Open area measuring 0.5 cm x 2 cm x 0.1 cm. The surrounding skin is intact. Left forearm - Healed skin tear. The surround skin is intact, there is no erythema. Wound Problem/Plan Assessment: Mr. Vargas is an 87 yo M with PMH of Afib, CAD, solitary kidney with CKD stage 2-3, who presented to the ED with altered mental status and was found to have dementia with superimposed delirium. During his hospitalization he developed 2 skin tears. Is Patient a Wound Clinic Patient: No - Patient Problems (1) Skin tear of upper extremity Code(s): S41.119A - LACERATION W/O FOREIGN BODY OF UNSP UPPER ARM, INIT ENCNTR SNOMED Code(s): 736018769 Comment: - Healed skin tear to left forearm - Healing skin tear to right forearm - Recommend leaving the left forearm open to air, no dressing required - Recommend Optifoam dressing to left forearm, change every 3 days, discontinue use after skin tear has healed (2) Severe protein-calorie malnutrition Code(s): E43 - UNSPECIFIED SEVERE PROTEIN-CALORIE MALNUTRITION SNOMED Code(s) : 241485590 Comment: - As evidenced by average intake of 25% of meals x past 5 days, moderate temporal muscle wasting - Continue supplements as per dietitian recommendation (3) DVT prophylaxis Code(s): DYG1388 - SNOMED Code(s): 642289803 Comment: - SQ heparin (4) DNR (do not resuscitate) Status and Disposition: Inpatient. Disposition per Primary Medicine Team. Points of Discussion: Time Spent: Time for this consultation was 15 minutes, and 10 minutes was spent with the patient discussing past medical history, and assessing, measuring and photographing wounds. Attending: Shira Islas
[2018-04-13 13:06] VITALS: BP 105/48
== END 2018-04-13 14:10 | DRG 884 ==
LOC: ED 15:56 → MED 22:22 → OBSVTOIN 04-05 10:07
PROVIDERS: ADMIT Internal Medicine; ATTEND Hospitalist
PROC: 4A10X4Z Monitoring of Central Nervous Electrical Activity, External Approach (ICD-10-PCS; principal; 2018-04-05)
DX: F03.91 Unspecified dementia, unspecified severity, with behavioral disturbance (principal); E43 Unspecified severe protein-calorie malnutrition; F05 Delirium due to known physiological condition; N17.9 Acute kidney failure, unspecified; M10.9 Gout, unspecified; I48.91 Unspecified atrial fibrillation; I25.10 Atherosclerotic heart disease of native coronary artery without angina pectoris; N18.3 Chronic kidney disease, stage 3 (moderate); I27.20 Pulmonary hypertension, unspecified; M19.031 Primary osteoarthritis, right wrist; M19.021 Primary osteoarthritis, right elbow; M17.11 Unilateral primary osteoarthritis, right knee; M70.21 Olecranon bursitis, right elbow; R40.2412 Glasgow coma scale score 13-15, at arrival to emergency department; M85.811 Other specified disorders of bone density and structure, right shoulder; M85.88 Other specified disorders of bone density and structure, other site; F10.10 Alcohol abuse, uncomplicated; Y90.9 Presence of alcohol in blood, level not specified; E78.5 Hyperlipidemia, unspecified; Z82.49 Family history of ischemic heart disease and other diseases of the circulatory system; Z82.3 Family history of stroke; Z83.3 Family history of diabetes mellitus; Z68.21 Body mass index [BMI] 21.0-21.9, adult; Q60.0 Renal agenesis, unilateral; Z79.82 Long term (current) use of aspirin; Z87.891 Personal history of nicotine dependence; Z95.5 Presence of coronary angioplasty implant and graft; Z66 Do not resuscitate
CPT/HCPCS: 36415; 70450; 70551; 71045; 80048; 80053; 80061; 80307; 80320; 80329; 81003; 82140; 82248; 82550; 82607; 83605; 83735; 83880; 83921; 84100; 84443; 84484; 84550; 85025; 85610; 85652; 86038; 86140; 86592; 93005; 93306; 95816; 99284; A9270-GY; G0480; G8978-GP-CM; G8979-GP-CI; G8987-GO-CN; G8988-GO-CI; J0360; J1630; J1644; J2060; J3411; J3475; J7512